=== PATIENT | male | born 1980 | race Caucasian/White ===

== ENCOUNTER → 2017-09-05 13:54 | Outpatient (CLI) | payer OTHER, SELFPAY ==
--- NOTE | 2017-09-05 13:00 | VAS_PTH ---
PATIENT: HARINDER HERNANDEZ LOC: [facility] U#:[id number] AGE/SX: 44/M ROOM: RE09/05/[address]: Dr. Jeb Colbert MD : 1980 BED: DIS: SPEC #: [id number] RECD: 09/05/17 15:25 STATUS: JOSÉ MIGUEL SARABJIT #: [id number] BRYON: 09/05/17 13:[address]: Jeb Colbert DEPT: SURGICAL PATHOLOGY RECD BY: Adalid Santos ENTERED: 09/08/17 12:56 SP TYPE: VAS OTHR DR: Dr. Norberto Rodgers DO Tissues: A - Vas deferens, NOS B - Vas deferens, NOS Procedures: Surgery Specimen Level II HEADER OPERATION: Partial vasectomy PRE-OP DIAGNOSIS: Sterilization TISSUE SUBMITTED: A. Right vas deferens, B. Left vas deferens MICROSCOPIC DIAGNOSIS A. Right vas deferens, partial vasectomy: Completely transected segment of vas deferens, no pathologic diagnosis. B. Left vas deferens, partial vasectomy: Completely transected segment of vas deferens, no pathologic diagnosis. JACINTO:symone 09/09/17 MICROSCOPIC DESCRIPTION Slides are reviewed. GROSS DESCRIPTION A - Received is one container designated right vas deferens. The specimen consists of a cylindrical segment of pink-milian soft tissue. The fragment measures 1.5 cm in length and 0.2 cm in maximum diameter. Serial sections do not reveal gross lesions. The specimen is totally submitted in one cassette. It will be serially sectioned at the time of embedding. B - Received is one container designated left vas deferens. The specimen consists of a cylindrical segment of pink-milian soft tissue. The fragment measures 2 cm in length and 0.2 cm in maximum diameter. Serial sections do not reveal gross lesions. The specimen is totally submitted in one cassette. It will be serially sectioned at the time of embedding. / JACINTO:symone 09/08/17 TC:4 CPT: 61021 x2
== END ==
PROVIDERS: Family Provider Student in an Organized Health Care Education/Training Program; PCP Student in an Organized Health Care Education/Training Program; Visit Provider Surgery
DX: Z30.2 Encounter for sterilization (principal)
CPT/HCPCS: 88302

== ENCOUNTER → 2017-11-05 08:32 | Outpatient (CLI) | payer OTHER, SELFPAY ==
[2017-11-06 11:03] LABS: Semen Analysis Post Vas ABSENT
== END ==
PROVIDERS: Family Provider Student in an Organized Health Care Education/Training Program; PCP Student in an Organized Health Care Education/Training Program; Visit Provider Surgery
DX: Z30.2 Encounter for sterilization (principal)
CPT/HCPCS: 89321

== ENCOUNTER → 2018-05-21 13:22 | Outpatient (CLI) | payer OTHER, SELFPAY ==
[2018-05-22 12:18] LABS: Semen Analysis Post Vas ABSENT
--- OUTSIDE RECORDS SUMMARY | 2018-07-16 17:58 | XMS RPT_ITS ---
:1980 Author Organization [facility] Care Team Providers Name Role Phone DANIELLE, NORBERTO L Referring Unavailable DANIELLE, NORBERTO L Attending Unavailable DANIELLE, NORBERTO L Referring Unavailable DANIELLE, NORBERTO L Attending Unavailable DANIELLE, NORBERTO L Referring Unavailable TESTRAKE, NILO Attending Unavailable DANIELLE, NORBERTO L Referring Unavailable TESTRAKE, NILO Attending Unavailable DANIELLE, NORBERTO L Referring Unavailable Cebul, Jeb Attending Unavailable Danielle, Norberto Referring Unavailable Danielle, Norberto Primary Care Unavailable Cebul, Jeb Attending Unavailable Cebul, Jeb Referring Unavailable Danielle, Norberto Primary Care Unavailable Cebul, Jeb Attending Unavailable Danielle, Norberto Referring Unavailable Danielle, Norberto Primary Care Unavailable Cebul, Jeb Attending Unavailable Danielle, Norberto Referring Unavailable Danielle, Norberto Primary Care Unavailable Cebul, Jeb Attending Unavailable Danielle, Norberto Referring Unavailable Danielle, Norberto Primary Care Unavailable Cebul, Jeb Attending Unavailable Danielle, Norberto Referring Unavailable Danielle, Norberto Primary Care Unavailable Cebul, Jeb Attending Unavailable Danielle, Norberto Referring Unavailable Danielle, Norberto Primary Care Unavailable Cebul, Jeb Attending Unavailable Cebul, Jeb Referring Unavailable Danielle, Norberto Primary Care Unavailable Cebul, Jeb Attending Unavailable Cebul, Jeb Referring Unavailable Danielle, Norberto Primary Care Unavailable PROBLEMS PROBLEMS DATE TYPE CONDITION / CODE ATTENDING STATUS SOURCE 03/25/2018 Active Pain in unspecified NA Active [facility] foot / [facility] [place] M79.673(ICD-10) Repository 10/01/2017 Unknown Z30.2 - Encounter Jeb Colbert Active [facility] for sterilization / [facility] Z30.2(ICD-10) Hospital Repository 06/10/2017 Active Mastodynia / NA Active [facility] N64.4(ICD-10) [facility] [place] Repository 05/13/2017 Active Alcohol abuse, NA Active [facility] uncomplicated / [facility] [place] F10.10(ICD-10) Repository PROCEDURES PROCEDURES No Procedure Records FoundRESULTS RESULTS CNOV Observed: 05/28/2018 Status: COMPLETED Source: [place] 9:25 AM [facility] REPOSITORY Office Visit (PODIWS) HARINDER HERNANDEZ ([id number]) 1980 M Date Time Provider Department 05/28/18 9:25 AM NILO DIA During your visit today, we recorded the following information about you: Joann Billy 05/28/2018 9:24 AM Signed AMB ROOMING INTAKE FLOWSHEET DATA Risk Screening Do you have concerns about personal safety or safety in the home?: No Pain Pain Score: 2/10 Pain Location: Other: See Comment ( Both feet) Description: Sore Duration Amount of Time: 1 Duration Units: Months Frequency: Continuous Intervention: Exercise, Other: See comment (stretches) Patient presents for a 1 month f/u for plantar fascitis, states his feet are hurting more lately but he has been forgetting to do some of the stretches. Joann Billy Nilo Dia DPM 05/28/2018 9:24 AM Signed Follow up podiatric office visit for: Chief Complaint: This 37 year old who presents for follow up:b/l plantar fasciitis Patient states that he is about 50% improved Patient continues with inserts Patient continues with stretching but reports that he is not doing as much as he should be. He had injection last office visit which he believes helped. Overall, patient states the pain is getting better. PAIN EVALUATION 05/28/2018 Pain Score: 2 Pain Location: Other: See Comment Both feet Description: Sore Duration Amount of Time: 1 Duration Units: Months Frequency: Continuous Intervention: Exercise;Other: See comment stretches No results found for: HBA1C PCP: Norberto Danielle, PAST MEDICAL HISTORY Diagnosis Date - Hypercholesteremia - Major depressive disorder 06/02/2015 [facility] - Major depressive disorder, recurrent severe without psychotic features (HCC) 06/02/2015 [facility] - Obesity (BMI 30-39.9) Current Outpatient Prescriptions: hydrocortisone (ANUSOL-HC) 25 mg suppository 1 Suppository by RECTAL route twice daily as needed (rectal bleeding). pantoprazole DR (PROTONIX) 40 mg tablet Take 1 tablet by mouth once daily. therapeutic multivitamin (THERA VITAMIN) tablet Take 1 tablet by mouth once daily. zwhezcka-zyt-mxvred-vit C-hyal [id number] mg tab Take by mouth. No current facility-administered medications for this visit. ALLERGIES No Known Allergies PAST SURGICAL HISTORY Procedure Laterality Date - PAST SURGICAL HISTORY OF 2011 abscess chest - VASECTOMY 2018 Physical Exam: Constitutional: Pt is a well developed 37 year old male who is alert, oriented, cooperative and in no apparent distress. OBJECTIVE: NVSI unchanged from previous visit. Dermatological: Nails 1-5 b/l are normal. Webspaces clean and dry 1-4 b/l. Skin appears well hydrated and supple. good color, texture, turgor. No open lesions present. No callosities present. Musculoskeletal/Orthopaedic: Patient has no pain to palpation of b/l feet -tinel to b/l feet Plantarflexion, dorsiflexion, inversion and eversion is 5/5 ASSESSMENT: (M72.2) Plantar fasciitis, bilateral (primary encounter diagnosis) PLAN: 1. History and physical examination completed today. 2. Plantar fasciitis pain is improved with stretching, icing, inserts and injection. Recommend he increase stretching and continue with inserts. 3. Pain should continue to improve. If he desires another injection, he can contact office. 4. F/u prn. 5. Patient pleased with progress Nilo Dia DPM Referring Provider: SELF [[id number]] Allergies As of Date: 05/28/2018 (No Known Allergies) Date Reviewed: 05/28/2018 Reviewed by: Joann Billy - Fully Assessed Reason for Visit: Recheck [92] Cmt: Plantar Fascitis Primary Visit Diagnosis:Plantar fasciitis, bilateral [M72.2] Prescriptions as of 05/28/2018 Sig: HYDROCORTISONE ACETATE 25 MG * 1 Suppository by RECTAL route* PANTOPRAZOLE 40 MG TABLET,DEL* Take 1 tablet by mouth once d* THERAPEUTIC MULTIVITAMIN TABL* Take 1 tablet by mouth once d* OMUOARIR-EJZ-FSWUSDOGE-C-HYAL* Take by mouth. Problem List As Of Date 05/28/2018 Noted Resolved Well adult [[id number]] INVALID FOR* GERD (gastroesophageal reflux disease) [K21.9] INVALID FOR* More... Obesity, Class III, BMI 40-49.9 (morbid obesity*INVALID FOR* Well adult exam [Z00.00] INVALID FOR* Pain of plantar aspect of heel [M79.673] INVALID FOR* Internal hemorrhoids [K64.8] INVALID FOR* Calcaneal spur [M77.30] INVALID FOR* Disposition: Return if symptoms worsen or fail to improve. Follow-up and Disposition History Recorded Encounter Status:Closed by NILO DIA DPM on 05/28/18 PROGRESS Observed: 05/28/2018 Status: COMPLETED Source: [place] 9:18 AM [facility] [place] REPOSITORY O ID: [id number] Author: Nilo Dia Service: (none) Author Type: Physician Type: Progress Notes Filed: 05/28/2018 9:24 AM Note Text: Follow up podiatric office visit for: Chief Complaint: This 37 year old who presents for follow up:b/l plantar fasciitis Patient states that he is about 50% improved Patient continues with inserts Patient continues with stretching but reports that he is not doing as much as he should be. He had injection last office visit which he believes helped. Overall, patient states the pain is getting better. PAIN EVALUATION 05/28/2018 Pain Score: 2 Pain Location: Other: See Comment Both feet Description: Sore Duration Amount of Time: 1 Duration Units: Months Frequency: Continuous Intervention: Exercise;Other: See comment stretches No results found for: HBA1C PCP: Norberto Danielle, PAST MEDICAL HISTORY Diagnosis Date - Hypercholesteremia - Major depressive disorder 06/02/2015 [facility] - Major depressive disorder, recurrent severe without psychotic features (HCC) 06/02/2015 [facility] - Obesity (BMI 30-39.9) Current Outpatient Prescriptions: hydrocortisone (ANUSOL-HC) 25 mg suppository 1 Suppository by RECTAL route twice daily as needed (rectal bleeding). pantoprazole DR (PROTONIX) 40 mg tablet Take 1 tablet by mouth once daily. therapeutic multivitamin (THERA VITAMIN) tablet Take 1 tablet by mouth once daily. ynhlhlqp-cxt-qidyri-vit C-hyal [phone] mg tab Take by mouth. No current facility-administered medications for this visit. ALLERGIES No Known Allergies PAST SURGICAL HISTORY Procedure Laterality Date - PAST SURGICAL HISTORY OF 2010 abscess chest - VASECTOMY 2018 Physical Exam: Constitutional: Pt is a well developed 37 year old male who is alert, oriented, cooperative and in no apparent distress. OBJECTIVE: NVSI unchanged from previous visit. Dermatological: Nails 1-5 b/l are normal. Webspaces clean and dry 1-4 b/l. Skin appears well hydrated and supple. good color, texture, turgor. No open lesions present. No callosities present. Musculoskeletal/Orthopaedic: Patient has no pain to palpation of b/l feet -tinel to b/l feet Plantarflexion, dorsiflexion, inversion and eversion is 5/5 ASSESSMENT: (M72.2) Plantar fasciitis, bilateral (primary encounter diagnosis) PLAN: 1. History and physical examination completed today. 2. Plantar fasciitis pain is improved with stretching, icing, inserts and injection. Recommend he increase stretching and continue with inserts. 3. Pain should continue to improve. If he desires another injection, he can contact office. 4. F/u prn. 5. Patient pleased with progress Nilo Dia DPM PROGRESS Observed: 05/28/2018 Status: COMPLETED Source: [place] 9:09 AM [facility] REPOSITORY HNO ID: [id number] Author: Joann Billy Service: (none) Author Type: (none) Type: Progress Notes Filed: 05/28/2018 9:24 AM Note Text: AMB ROOMING INTAKE FLOWSHEET DATA Risk Screening Do you have concerns about personal safety or safety in the home?: No Pain Pain Score: 2/10 Pain Location: Other: See Comment ( Both feet) Description: Sore Duration Amount of Time: 1 Duration Units: Months Frequency: Continuous Intervention: Exercise, Other: See comment (stretches) Patient presents for a 1 month f/u for plantar fascitis, states his feet are hurting more lately but he has been forgetting to do some of the stretches. Joann Billy SEMEN ANALYSIS POST Collected: 05/21/2018 Status: C Source: [place] VAS 1:40 PM [facility] [place] TYPE CODE TESTS RESULT OUT OF RANGE REFERENCE UNITS LAB L200.1000 Normal SEMEN ABSENT POST VAS Result Comment: CYTOSPIN PREPARATION USED FOR CONCENTRATION OF SPECIMEN PRIOR TO STAINING AND EXAMINATION Sperm is absent. Cb Vyas M.D. 05/22/18 AMENDED REPORT 05/22/18 1218 SEMEN POST VAS previously reported as: ABSENT CYTOSPIN PREPARATION USED FOR CONCENTRATION OF SPECIMEN PRIOR TO STAINING AND EXAMINATION Performed By: #### L200.1000 #### [facility] [address] [place], [address] PROGRESS Observed: 04/13/2018 Status: COMPLETED Source: [place] 10:55 AM [facility] REPOSITORY HNO ID: [id number] Author: Galina Coronado Ma Service: (none) Author Type: (none) Type: Progress Notes Filed: 04/13/2018 10:55 AM Note Text: Patient provided with Powerstep Original , size 11, and instructed/educated in its application, wear, and care. All questions were answered, and patient was able to demonstrate competence with the necessary skills to utilize the above equipment. Galina Coronado Ma PROGRESS Observed: 04/13/2018 Status: COMPLETED Source: [place] 9:24 AM [facility] REPOSITORY HNO ID: [id number] Author: Nilo Dia Service: (none) Author Type: Physician Type: Progress Notes Filed: 04/13/2018 10:00 AM Note Text: Consultation requested by Dr. Danielle for an opinion regarding b/l heel pain. My final recommendations will be communicated back to the requesting physician by way of shared Medical record or letter to requesting physician via US mail. Initial Podiatric Office Visit: Chief Complaint: This 37 year old male who presents with chief complaint:b/l heel pain HPI Patient presents to clinic for evaluation of b/l heel pain He complains of pain to plantar aspect of b/l heels for 10- 15 years He states the pain is the worst when he first wakes up in the morning or after prolonged standing. Patient states the pain varies which is why he has not gone to see anyone for this pain. Patient has done some rom exercises/stretching for the pain. He has no done any icing or nsaids. PAIN EVALUATION 04/13/2018 Pain Score: 2 Pain Location: Foot-Right Description: Dull;Aching;Sharp Duration Amount of Time: 10 Duration Units: Years Frequency: Intermittent Intervention: Medication No results found for: HBA1C PCP: Norberto Danielle DO PAST MEDICAL HISTORY Diagnosis Date - Hypercholesteremia - Major depressive disorder 06/02/2015 [facility] - Major depressive disorder, recurrent severe without psychotic features (HCC) 06/02/2015 See scanned documents from [facility] - Obesity (BMI 30-39.9) Current Outpatient Prescriptions: hydrocortisone (ANUSOL-HC) 25 mg suppository 1 Suppository by RECTAL route twice daily as needed (rectal bleeding). pantoprazole DR (PROTONIX) 40 mg tablet Take 1 tablet by mouth once daily. therapeutic multivitamin (THERA VITAMIN) tablet Take 1 tablet by mouth once daily. drdpvwmm-hqu-gzhuec-vit C-hyal [id number] mg tab Take by mouth. No current facility-administered medications for this visit. ALLERGIES No Known Allergies PAST SURGICAL HISTORY Procedure Laterality Date - PAST SURGICAL HISTORY OF 2010 abscess chest - VASECTOMY 2018 FAMILY HISTORY Problem Relation Age of Onset - Breast Cancer Mother - Heart Mother from chemo - Diabetes Father - Cancer Maternal Grandmother Lung - Cancer Maternal Grandfather pancreatic - other (NPH) Sister - Cancer Maternal Aunt Breast - Cancer Maternal Uncle Colorectal Social History Marital status: Spouse name: Years of education: Number of children: 1 Social History Main Topics Smoking status: Former Smoker Packs/day: 1.00 Years: 10.00 Smokeless tobacco: Never Used Comment: quit 2008 Alcohol use: Yes Comment: 1-2 beers/ d Drug use: No Sexual activity: Yes Partners with: Female Social History Narrative - works in [employer] at [employer], son max born 2011 REVIEW OF SYSTEMS GENERAL: Negative for Malaise, significant weight loss, fever RESPIRATORY: Negative for cough, wheezing and shortness of breath CARDIOVASCULAR: Negative for chest pain, leg swelling and palpitations GI: Negative for abdominal discomfort, blood in stools or black stools and change in bowel habits : Negative for dysuria, frequency and incontinence MUSCULOSKELETAL: Positive for b/l heel pain SKIN: Negative for lesions, rash, and itching. HEMATOLOGY/LYMPHOLOGY Negative for prolonged bleeding, bruising easily, and swollen nodes. ENDOCRINE: Negative for cold or heat intolerance, polyuria, polydipsia and goiter. NEURO: negative Physical Exam: Constitutional: Pt is a well developed 37 year old male who is alert, oriented and cooperative Eyes: Following during examination. No redness or drainage. Respiratory: RR normal and nonlabored. Even breathing. No evidence of distress or shortness of breath. Psychology: Patient is engaged during conversation. Normal affect and mood. Does not appear depressed or anxious during encounter. Vascular: Dorsalis pedis and posterior tibial pulses palpable as b/l Capillary Fill time < 5 seconds to digits 1-5 b/l Skin temperature warm to warm proximal to distal b/l Hair growth present to digits Neurological: intact light touch/epicritic sensation b/l intact protective sensation no significant neurological deficits Dermatological: Nails 1-5 b/l appear normal. Webspaces clean and dry 1-4 b/l. Skin appears well hydrated and supple. good color, texture, turgor. No open lesions present. No callosities present. Musculoskeletal/Orthopaedic: Patient has pain to palpation of b/l medial calcaneal tubercle Foot type is neutral structurally AJ ROM is full with knee extended and flexed 1st MPJ is full when loaded and no pain or crepitus are noted with ROM. MTJ, STJ are full and free of pain and crepitus. +5/5 muscle strength dorsiflexion, plantarflexion, inversion, eversion b/l Radiographs: 3 views b/l foot ordered April 13, 2018: I have personally reviewed and interpreted these XR myself: There is plantar heel spur b/l ASSESSMENT: (M72.2) Plantar fasciitis, bilateral (primary encounter diagnosis) PLAN: 1. Initial Office Visit - A thorough review of the patient's PMH and Podiatric physical exam was completed. 2. Patient advised to perform stretching excercises, icing, and to make appropriate shoe gear changes to include wearing athletic- type shoes with supportive insoles. No barefoot walking. Patient also given written instructions on how to correctly perform the stretching of the achilles tendon/calf stretches, and the heel spur/plantar fasciitis regimen. 3. Patient advised to seek wide, deep toe box, accomodative, comfortable, lace-up, athletic/walking type footwear that includes motion control characteristics for support and cushion that need to be worn at all times when weight-bearing. Shoes should be tested for torsional stability as well as proper bending at the toebox rather than at the midfoot. Good quality shoes such as, but not limited to, New Balance or Asics are examples of more proper foot gear. 4. Patient recommended to get powerstep insoles for proper support of the arch in order to alleviate the tension and stress on the plantar fascia associated with normal daily walking. Patient advised that these modalities used in conjunction with stretching and icing are able to alleviate most symptoms from this condition. 5. Discussed injection today. Patient elected to receive Patient elected to proceed with an injection to the b/l heel today. The risks, benefits, potential complications, personnel present, and alternatives to this were discsussed. Pt elected to proceed. all questions were answered. no guarantees were given. A timeout was performed. patient properly identified. procedure site marked. Under aseptic technique an injection was performed to the heel using a mixture of ? cc of 0.5 % Marcaine plain, ? of kenalog and ? cc of dexamethazone 6. F/u in 1 month Nilo Dia DPM PROGRESS Observed: 04/13/2018 Status: COMPLETED Source: [place] 9:15 AM [facility] REPOSITORY HNO ID: [id number] Author: Hawa Fabian MA Service: (none) Author Type: (none) Type: Progress Notes Filed: 04/13/2018 10:00 AM Note Text: AMB ROOMING INTAKE FLOWSHEET DATA Risk Screening Do you have concerns about personal safety or safety in the home?: No Pain Pain Score: 2/10 Pain Location: Foot-Right Description: Dull, Aching, Sharp Duration Amount of Time: 10 Duration Units: Years Frequency: Intermittent Intervention: Medication Patient is here for b/l pain heel pain. Patient states in the morning the bottom of his feet hurts at pain 8/10. Patient takes nothing for pain. PCP advise pt to see a Railroad Operator. EMPERATRIZ 03/25 HUMBERTO Observed: 04/13/2018 Status: COMPLETED Source: [place] 9:10 AM [facility] REPOSITORY Office Visit (PODIWS) HARINDER HERNANDEZ ([id number]) 1980 M Date Time Provider Department 04/13/18 9:10 AM NILO DIA PODLINH During your visit today, we recorded the following information about you: Hawa Fabian MA 04/13/2018 10:00 AM Signed AMB ROOMING INTAKE FLOWSHEET DATA Risk Screening Do you have concerns about personal safety or safety in the home?: No Pain Pain Score: 2/10 Pain Location: Foot-Right Description: Dull, Aching, Sharp Duration Amount of Time: 10 Duration Units: Years Frequency: Intermittent Intervention: Medication Patient is here for b/l pain heel pain. Patient states in the morning the bottom of his feet hurts at pain 8/10. Patient takes nothing for pain. PCP advise pt to see a Railroad Operator. XR 03/25 Nilo Dia DPM 04/13/2018 10:00 AM Signed Consultation requested by Dr. Danielle for an opinion regarding b/l heel pain. My final recommendations will be communicated back to the requesting physician by way of shared Medical record or letter to requesting physician via [place] mail. Initial Podiatric Office Visit: Chief Complaint: This 37 year old male who presents with chief complaint:b/l heel pain HPI Patient presents to clinic for evaluation of b/l heel pain He complains of pain to plantar aspect of b/l heels for 10- 15 years He states the pain is the worst when he first wakes up in the morning or after prolonged standing. Patient states the pain varies which is why he has not gone to see anyone for this pain. Patient has done some rom exercises/stretching for the pain. He has no done any icing or nsaids. PAIN EVALUATION 04/13/2018 Pain Score: 2 Pain Location: Foot-Right Description: Dull;Aching;Sharp Duration Amount of Time: 10 Duration Units: Years Frequency: Intermittent Intervention: Medication No results found for: HBA1C PCP: Norberto Danielle, PAST MEDICAL HISTORY Diagnosis Date - Hypercholesteremia - Major depressive disorder 06/02/2015 [facility] - Major depressive disorder, recurrent severe without psychotic features (HCC) 06/02/2015 [facility] - Obesity (BMI 30-39.9) Current Outpatient Prescriptions: hydrocortisone (ANUSOL-HC) 25 mg suppository 1 Suppository by RECTAL route twice daily as needed (rectal bleeding). pantoprazole DR (PROTONIX) 40 mg tablet Take 1 tablet by mouth once daily. therapeutic multivitamin (THERA VITAMIN) tablet Take 1 tablet by mouth once daily. jyzkysey-szk-ppwgxf-vit C-hyal [id number] mg tab Take by mouth. No current facility-administered medications for this visit. ALLERGIES No Known Allergies PAST SURGICAL HISTORY Procedure Laterality Date - PAST SURGICAL HISTORY OF 2011 abscess chest - VASECTOMY 2018 FAMILY HISTORY Problem Relation Age of Onset - Breast Cancer Mother - Heart Mother from chemo - Diabetes Father - Cancer Maternal Grandmother Lung - Cancer Maternal Grandfather pancreatic - other (NPH) Sister - Cancer Maternal Aunt Breast - Cancer Maternal Uncle Colorectal Social History Marital status: Spouse name: Years of education: Number of children: 1 Social History Main Topics Smoking status: Former Smoker Packs/day: 1.00 Years: 10.00 Smokeless tobacco: Never Used Comment: quit 2008 Alcohol use: Yes Comment: 1-2 beers/ d Drug use: No Sexual activity: Yes Partners with: Female Social History Narrative - works in [employer] at [employer], son chauncey born 2011 REVIEW OF SYSTEMS GENERAL: Negative for Malaise, significant weight loss, fever RESPIRATORY: Negative for cough, wheezing and shortness of breath CARDIOVASCULAR: Negative for chest pain, leg swelling and palpitations GI: Negative for abdominal discomfort, blood in stools or black stools and change in bowel habits : Negative for dysuria, frequency and incontinence MUSCULOSKELETAL: Positive for b/l heel pain SKIN: Negative for lesions, rash, and itching. HEMATOLOGY/LYMPHOLOGY Negative for prolonged bleeding, bruising easily, and swollen nodes. ENDOCRINE: Negative for cold or heat intolerance, polyuria, polydipsia and goiter. NEURO: negative Physical Exam: Constitutional: Pt is a well developed 37 year old male who is alert, oriented and cooperative Eyes: Following during examination. No redness or drainage. Respiratory: RR normal and nonlabored. Even breathing. No evidence of distress or shortness of breath. Psychology: Patient is engaged during conversation. Normal affect and mood. Does not appear depressed or anxious during encounter. Vascular: Dorsalis pedis and posterior tibial pulses palpable as b/l Capillary Fill time < 5 seconds to digits 1-5 b/l Skin temperature warm to warm proximal to distal b/l Hair growth present to digits Neurological: intact light touch/epicritic sensation b/l intact protective sensation no significant neurological deficits Dermatological: Nails 1-5 b/l appear normal. Webspaces clean and dry 1-4 b/l. Skin appears well hydrated and supple. good color, texture, turgor. No open lesions present. No callosities present. Musculoskeletal/Orthopaedic: Patient has pain to palpation of b/l medial calcaneal tubercle Foot type is neutral structurally AJ ROM is full with knee extended and flexed 1st MPJ is full when loaded and no pain or crepitus are noted with ROM. MTJ, STJ are full and free of pain and crepitus. +5/5 muscle strength dorsiflexion, plantarflexion, inversion, eversion b/l Radiographs: 3 views b/l foot ordered April 13, 2018: I have personally reviewed and interpreted these XR myself: There is plantar heel spur b/l ASSESSMENT: (M72.2) Plantar fasciitis, bilateral (primary encounter diagnosis) PLAN: 1. Initial Office Visit - A thorough review of the patient's PMH and Podiatric physical exam was completed. 2. Patient advised to perform stretching excercises, icing, and to make appropriate shoe gear changes to include wearing athletic- type shoes with supportive insoles. No barefoot walking. Patient also given written instructions on how to correctly perform the stretching of the achilles tendon/calf stretches, and the heel spur/plantar fasciitis regimen. 3. Patient advised to seek wide, deep toe box, accomodative, comfortable, lace-up, athletic/walking type footwear that includes motion control characteristics for support and cushion that need to be worn at all times when weight-bearing. Shoes should be tested for torsional stability as well as proper bending at the toebox rather than at the midfoot. Good quality shoes such as, but not limited to, New Balance or Asics are examples of more proper foot gear. 4. Patient recommended to get powerstep insoles for proper support of the arch in order to alleviate the tension and stress on the plantar fascia associated with normal daily walking. Patient advised that these modalities used in conjunction with stretching and icing are able to alleviate most symptoms from this condition. 5. Discussed injection today. Patient elected to receive Patient elected to proceed with an injection to the b/l heel today. The risks, benefits, potential complications, personnel present, and alternatives to this were discsussed. Pt elected to proceed. all questions were answered. no guarantees were given. A timeout was performed. patient properly identified. procedure site marked. Under aseptic technique an injection was performed to the heel using a mixture of ? cc of 0.5 % Marcaine plain, ? of kenalog and ? cc of dexamethazone 6. F/u in 1 month PETER Strauss DPM 04/13/2018 9:39 AM Signed What is Plantar Fasciitis? Plantar fasciitis is the most common cause of heel pain. The pain is caused by inflammation of the plantar fascia. If you strain your plantar fascia, it becomes weak, swollen and irritated (inflamed). The resulting pain may be isolated in the heel or may appear at different points on the bottom of the foot, from time to time; it may occur in one foot or both. Some think that plantar fasciitis pain is caused by irritation of nerves from tissue swelling or inflammation, but it is debatable. Plantar fasciitis is common in middle-aged people; it also occurs in younger people who are on their feet a lot, such as athletes or soldiers. The plantar fascia is a strong band of connective tissue that extends from the base of the toes, along the bottom of the foot, to the bottom of the heel (calcaneous bone); it acts like a bowstring to maintain the arch of the foot. What are heel spurs? The inflammatory reaction of the heel bone may produce spike- like projections of new bone, called heel spurs. The spurs sometimes show on X-rays. They neither cause the initial pain nor do they cause the initial problem. However, later, having to walk on spurs may cause sharp pain. What causes plantar fasciitis? Plantar fasciitis is caused by straining the ligament that supports your arch. Repeated strain can cause tiny tears in the ligament. These lead to pain and swelling. During walking, the plantar fascia experiences tension up to twice the body weight with each step. While this is normal, those who spend much time on their feet, such as nurses, formal waiter/waitress/waiters, and mail carriers, often experience plantar fasciitis. Athletes involved in tennis or other racquet sports, race walking, jogging or running also show a higher incidence of plantar fasciitis than do those participating in other activities. Thus, it's clear that plantar fasciitis is predominantly an overuse injury. In fact, any activity that results in prolonged tension and stress on the plantar fascia may cause plantar fasciitis. It is possible that changes in footwear may play a role in causing plantar fasciitis, no matter what activity is occurring. Those who are overweight are prone to plantar fasciitis. This is true even for sedentary people who get little physical activity. Abnormalities of the foot and ankle joints may predispose some individuals to development of plantar fasciitis (specifically, over pronation of the subtalar joint). Contributing Factors * Flat feet * Toe running, hill running * Sudden weight increase * High-arched, rigid feet * Soft terrain, e.g. running on sand * Obesity * Pronated feet (rolled inward) * Sudden increase in activity * Family tendency * Poor shoe support * Worn out or poorly fitted shoes * Increasing age * Walking, standing or running for long periods of time, especially on hard surfaces. How is the Injury Treated? Rest Your Feet: Limit, or if possible, stop activities that are causing your heel pain. Try to avoid running or walking on hard surfaces, such as concrete. Use pain as your guide. If your foot is too painful, rest it. Ice: Ice the sore area for 30 to 60 minutes, several times a day, to reduce inflammation and relieve pain. Apply a plastic bag of crushed ice (or a bag of frozen peas) over a towel. Ice the sore area for 15 minutes after activity/exercise. Application of heat is not generally recommended, as heat expands the bone and connective tissue, perhaps exerting greater pressure on nerves and thereby increasing pain. If heat is used, follow it with ice. Medication: If your condition developed recently, anti-inflammatory/analgesic medication, combined with heel pads (see below) may be all that is necessary to relieve pain and to reduce inflammation. If no pain relief has occurred after 2-3 weeks, however, your doctor may inject either cortisone or local anesthetic directly into the tender area. Exercises: Do simple exercises, such as calf stretches and towel stretches (see below) several times a day, especially when you first get up in the morning. These can help your ligament become more flexible and strengthen the muscles that support your arch. Shoes: Poorly fitting shoes can cause plantar fasciitis. The best type of shoe to wear is a good walking or running shoe with good shock absorption and excellent arch support. You should choose the one that fits the best. [place] with your athletic shoes to find a pair that is comfortable and causes fewer symptoms. Put your shoes on as soon as you get out of bed; going barefoot or wearing slippers may make your pain worse. Good brands include (but are not limited to): New Balance, Asics, Saucony, SAS and Merrel?s. Taping: Your doctor may tape your foot to maintain the arch. This takes some of the tension off the plantar fascia. Weight Loss: If your weight is putting extra stress on your feet, your doctor may encourage you to try a weight-loss program. Orthotics: An orthotic insole is a molded piece of rubber, plastic, or other material that you insert into your shoe. It corrects the alignment of your foot and cushions your foot from excessive pounding. These may be prescription or non-prescription. Prescription orthotics are custom-fitted and may fit better and control pain better, but are very expensive. Night Splints: A night splint holds the foot with the toes pointed up and the ankle at a 90-degree angle. This position applies a constant, gentle stretch to the plantar fascia. Corticosteroid Shots: Steroids may be injected into the tender area to reduce inflammation. REHAB Exercises to stretch the plantar fascia, the calf muscles, and the Achilles tendon. Tightness of the muscles of the calves may contribute to plantar fasciitis, so stretching the calf muscles is important to rehabilitation, as is stretching of the plantar fascia itself. Plantar fascial stretches Assisted Dorsiflexion/Plantar Fascia Stretch: Sit on the floor or ground, barefoot, with both legs outstretched. Use a towel or elastic band and wrap it around the ball (and not the toes) of the affected foot. Use the towel or elastic band to provide resistance to upward movement of the forefoot. Pull foot upward (toward your body) with the help of the elastic band or towel, and then return to the starting position. Ten repetitions are recommended. Perform the sequence at least three times a day. Alternate Plantar Fascia Stretch: Sit upright in a chair, barefoot. Place the ankle of the affected foot on your opposite knee. Using the same hand as the affected foot, reach across and grab the toes. Flex the ankle toward and pull the toes toward the montes. To test the stretch, place the thumb of your hand on the bottom of the foot. You should be able to feel the cord- like plantar fascia, running the length of the foot. Hold the stretch for a count of 10, then relax. Repeat 10 times. Do the sequence at least three times a day. Achilles/Calf Stretches Strengthening the muscles of the calves may contribute to successful rehabilitation of plantar fasciitis, as well as prevent reoccurrence. The exercises below will help strengthen the calf muscles. Calf and Achilles Tendon Stretch (Gastrocnemius Stretch): Face a wall, standing an arm's length away. Place one foot back. Place both hands on the wall. Bend the elbows and knee of your forward leg, keeping the heel of the backward foot on the floor and keeping your body straight (aligned), until your forehead nearly touches the wall, or until significant stretch is felt in the muscles of the calf of the backward leg. Hold this position for 10 to 15 seconds. Extend elbows (straighten your arms and stand upright again) and maintain this position for 10 seconds. Repeat this cycle 15 to 20 times. Switch legs and repeat the exercise. STEROID INJECTION You have been injected with a corticosteroid and local anesthesia today. This should provide relief of symptoms for the next 8 hours or so. After this time frame you will likely experience an increase in pain symptoms again until the effects of the steroid start to work, which should occur within 24-48 hours. Approximately 2% of individuals may experience a post injection flare or severe worsening of symptoms following injection. If this occurs ice the area and take Tylenol or Aleve for pain. In some very rare instances skin depigmentation and joint infection may occur. Joint infection is a concern if you experience any of the following: ? pain for more than 48 hours after the injection ? pain develops more than 2 days after the injection ? the area becomes red, hot or swollen ? you develop a fever following the injection Corticosteroid injections can also rarely interfere with the healing process and weaken tendons, sometimes causing tendons to rupture. Repeated injections of steroids can also damage joint cartilage. For these reasons, there are limits to how many times and how frequently corticosteroid injections can be used in the same area. If anything seems unusual or out of the ordinary please contact our office as soon as possible for further instruction. Galina Coronado Ma 04/13/2018 10:55 AM Signed Patient provided with Powerstep Original , size 11, and instructed/educated in its application, wear, and care. All questions were answered, and patient was able to demonstrate competence with the necessary skills to utilize the above equipment. Galina Coronado Ma Referring Provider: NORBERTO DANIELLE [[id number]] Allergies As of Date: 04/13/2018 (No Known Allergies) Date Reviewed: 04/13/2018 Reviewed by: Hawa Fabian MA - Fully Assessed Reason for Visit: New Patient [[id number]] Primary Visit Diagnosis:Plantar fasciitis, bilateral [M72.2] Order(s):[] bupivacaine (PF) 0.5 % (5 mg/mL) 2.5 mg injectionDisp: Rfl: [] dexamethasone sodium phosphate 2 mg injection (DECADRON)Disp: Rfl: [] triamcinolone acetonide 5 mg injection (KENALOG 10)Disp: Rfl: Prescriptions as of 04/13/2018 Sig: HYDROCORTISONE ACETATE 25 MG * 1 Suppository by RECTAL route* PANTOPRAZOLE 40 MG TABLET,DEL* Take 1 tablet by mouth once d* THERAPEUTIC MULTIVITAMIN TABL* Take 1 tablet by mouth once d* [id number]-[id number]-C-HYAL* Take by mouth. Problem List As Of Date 04/13/2018 Noted Resolved Well adult [MKM6942] INVALID FOR* GERD (gastroesophageal reflux disease) [K21.9] INVALID FOR* More... Obesity, Class III, BMI 40-49.9 (morbid obesity*INVALID FOR* Well adult exam [Z00.00] INVALID FOR* Pain of plantar aspect of heel [M79.673] INVALID FOR* Internal hemorrhoids [K64.8] INVALID FOR* Calcaneal spur [M77.30] INVALID FOR* Other instructions from your clinician: What is Plantar Fasciitis? Plantar fasciitis is the most common cause of heel pain. The pain is caused by inflammation of the plantar fascia. If you strain your plantar fascia, it becomes weak, swollen and irritated (inflamed). The resulting pain may be isolated in the heel or may appear at different points on the bottom of the foot, from time to time; it may occur in one foot or both. Some think that plantar fasciitis pain is caused by irritation of nerves from tissue swelling or inflammation, but it is debatable. Plantar fasciitis is common in middle-aged people; it also occurs in younger people who are on their feet a lot, such as athletes or soldiers. The plantar fascia is a strong band of connective tissue that extends from the base of the toes, along the bottom of the foot, to the bottom of the heel (calcaneous bone); it acts like a bowstring to maintain the arch of the foot. What are heel spurs? The inflammatory reaction of the heel bone may produce spike-like projections of new bone, called heel spurs. The spurs sometimes show on X-rays. They neither cause the initial pain nor do they cause the initial problem. However, later, having to walk on spurs may cause sharp pain. What causes plantar fasciitis? Plantar fasciitis is caused by straining the ligament that supports your arch. Repeated strain can cause tiny tears in the ligament. These lead to pain and swelling. During walking, the plantar fascia experiences tension up to twice the body weight with each step. While this is normal, those who spend much time on their feet, such as nurses, formal waiter/waitress/waiters, and mail carriers, often experience plantar fasciitis. Athletes involved in tennis or other racquet sports, race walking, jogging or running also show a higher incidence of plantar fasciitis than do those participating in other activities. Thus, it's clear that plantar fasciitis is predominantly an overuse injury. In fact, any activity that results in prolonged tension and stress on the plantar fascia may cause plantar fasciitis. It is possible that changes in footwear may play a role in causing plantar fasciitis, no matter what activity is occurring. Those who are overweight are prone to plantar fasciitis. This is true even for sedentary people who get little physical activity. Abnormalities of the foot and ankle joints may predispose some individuals to development of plantar fasciitis (specifically, over pronation of the subtalar joint). Contributing Factors * Flat feet * Toe running, hill running * Sudden weight increase * High-arched, rigid feet * Soft terrain, e.g. running on sand * Obesity * Pronated feet (rolled inward) * Sudden increase in activity * Family tendency * Poor shoe support * Worn out or poorly fitted shoes * Increasing age * Walking, standing or running for long periods of time, especially on hard surfaces. How is the Injury Treated? Rest Your Feet: Limit, or if possible, stop activities that are causing your heel pain. Try to avoid running or walking on hard surfaces, such as concrete. Use pain as your guide. If your foot is too painful, rest it. Ice: Ice the sore area for 30 to 60 minutes, several times a day, to reduce inflammation and relieve pain. Apply a plastic bag of crushed ice (or a bag of frozen peas) over a towel. Ice the sore area for 15 minutes after activity/exercise. Application of heat is not generally recommended, as heat expands the bone and connective tissue, perhaps exerting greater pressure on nerves and thereby increasing pain. If heat is used, follow it with ice. Medication: If your condition developed recently, anti-inflammatory/analgesic medication, combined with heel pads (see below) may be all that is necessary to relieve pain and to reduce inflammation. If no pain relief has occurred after 2-3 weeks, however, your doctor may inject either cortisone or local anesthetic directly into the tender area. Exercises: Do simple exercises, such as calf stretches and towel stretches (see below) several times a day, especially when you first get up in the morning. These can help your ligament become more flexible and strengthen the muscles that support your arch. Shoes: Poorly fitting shoes can cause plantar fasciitis. The best type of shoe to wear is a good walking or running shoe with good shock absorption and excellent arch support. You should choose the one that fits the best. [place] with your athletic shoes to find a pair that is comfortable and causes fewer symptoms. Put your shoes on as soon as you get out of bed; going barefoot or wearing slippers may make your pain worse. Good brands include (but are not limited to): New Balance, Asics, Saucony, SAS and Merrel?s. Taping: Your doctor may tape your foot to maintain the arch. This takes some of the tension off the plantar fascia. Weight Loss: If your weight is putting extra stress on your feet, your doctor may encourage you to try a weight-loss program. Orthotics: An orthotic insole is a molded piece of rubber, plastic, or other material that you insert into your shoe. It corrects the alignment of your foot and cushions your foot from excessive pounding. These may be prescription or non-prescription. Prescription orthotics are custom-fitted and may fit better and control pain better, but are very expensive. Night Splints: A night splint holds the foot with the toes pointed up and the ankle at a 90-degree angle. This position applies a constant, gentle stretch to the plantar fascia. Corticosteroid Shots: Steroids may be injected into the tender area to reduce inflammation. REHAB Exercises to stretch the plantar fascia, the calf muscles, and the Achilles tendon. Tightness of the muscles of the calves may contribute to plantar fasciitis, so stretching the calf muscles is important to rehabilitation, as is stretching of the plantar fascia itself. Plantar fascial stretches Assisted Dorsiflexion/Plantar Fascia Stretch: Sit on the floor or ground, barefoot, with both legs outstretched. Use a towel or elastic band and wrap it around the ball (and not the toes) of the affected foot. Use the towel or elastic band to provide resistance to upward movement of the forefoot. Pull foot upward (toward your body) with the help of the elastic band or towel, and then return to the starting position. Ten repetitions are recommended. Perform the sequence at least three times a day. Alternate Plantar Fascia Stretch: Sit upright in a chair, barefoot. Place the ankle of the affected foot on your opposite knee. Using the same hand as the affected foot, reach across and grab the toes. Flex the ankle toward and pull the toes toward the montes. To test the stretch, place the thumb of your hand on the bottom of the foot. You should be able to feel the cord-like plantar fascia, running the length of the foot. Hold the stretch for a count of 10, then relax. Repeat 10 times. Do the sequence at least three times a day. Achilles/Calf Stretches Strengthening the muscles of the calves may contribute to successful rehabilitation of plantar fasciitis, as well as prevent reoccurrence. The exercises below will help strengthen the calf muscles. Calf and Achilles Tendon Stretch (Gastrocnemius Stretch): Face a wall, standing an arm's length away. Place one foot back. Place both hands on the wall. Bend the elbows and knee of your forward leg, keeping the heel of the backward foot on the floor and keeping your body straight (aligned), until your forehead nearly touches the wall, or until significant stretch is felt in the muscles of the calf of the backward leg. Hold this position for 10 to 15 seconds. Extend elbows (straighten your arms and stand upright again) and maintain this position for 10 seconds. Repeat this cycle 15 to 20 times. Switch legs and repeat the exercise. STEROID INJECTION You have been injected with a corticosteroid and local anesthesia today. This should provide relief of symptoms for the next 8 hours or so. After this time frame you will likely experience an increase in pain symptoms again until the effects of the steroid start to work, which should occur within 24-48 hours. Approximately 2% of individuals may experience a post injection flare or severe worsening of symptoms following injection. If this occurs ice the area and take Tylenol or Aleve for pain. In some very rare instances skin depigmentation and joint infection may occur. Joint infection is a concern if you experience any of the following: ? pain for more than 48 hours after the injection ? pain develops more than 2 days after the injection ? the area becomes red, hot or swollen ? you develop a fever following the injection Corticosteroid injections can also rarely interfere with the healing process and weaken tendons, sometimes causing tendons to rupture. Repeated injections of steroids can also damage joint cartilage. For these reasons, there are limits to how many times and how frequently corticosteroid injections can be used in the same area. If anything seems unusual or out of the ordinary please contact our office as soon as possible for further instruction. Prescriptions ordered this encounter Disp Refills Start End BUPIVACAINE (PF) 0.5 % (5 MG/ML) INJ* 04/13/2018 04/13/2018 Route: IAtc DEXAMETHASONE 4 MG/ML INJECTION SOLU* 04/13/2018 04/13/2018 Route: IAtc TRIAMCINOLONE ACETONIDE 10 MG/ML FELIX* 04/13/2018 04/13/2018 Route: IAtc Encounter Status:Closed by NILO DIA DPM on 04/13/18 PROGRESS Observed: 03/25/2018 Status: COMPLETED Source: [place] 4:58 PM [facility] [place] [facility] ID: [id number] Author: Norberto Danielle Service: (none) Author Type: Physician Type: Progress Notes Filed: 03/25/2018 5:05 PM Note Text: CC: Harinder Hernandez is a 37 year old male who presents to the office for several concerns HPI: Blood in stool, off and on to small degree for several years, but only when wiping and only occasional. 2 weeks ago he had 2 days of bright red bleeding with a bowel movement, no associated rectal pain, no associated fevers or chills or rectal spasmic discomfort. No abdominal pain or cramping associated with it. No obvious hemorrhoids B/l heel pain, off and on for years, 12+ years. Xray last was >6 years ago and told has large heel spurs. Now symptoms are becoming more significant and persistent and lasting for hours, occurring on a daily basis, worse in the morning when waking up from bed, sometimes better as day goes on but also worse after getting up to walk after prolonged sitting. Use of ice and stretching foot and NSAIDs intermittently. PAST MEDICAL HISTORY Diagnosis Date - Hypercholesteremia - Major depressive disorder 06/02/2015 [facility] - Major depressive disorder, recurrent severe without psychotic features (HCC) 06/02/2015 See [facility] - Obesity (BMI 30-39.9) PAST SURGICAL HISTORY Procedure Laterality Date - PAST SURGICAL HISTORY OF 2010 abscess chest - VASECTOMY 2018 Current Outpatient Prescriptions: pantoprazole DR (PROTONIX) 40 mg tablet Take 1 tablet by mouth once daily. therapeutic multivitamin (THERA VITAMIN) tablet Take 1 tablet by mouth once daily. pziqsshw-uuk-dfrjuv-vit C-hyal [id number] mg tab Take by mouth. No current facility-administered medications for this visit. ALLERGIES No Known Allergies Social History Marital status: Spouse name: Years of education: Number of children: 1 Social History Main Topics Smoking status: Former Smoker Packs/day: 1.00 Years: 10.00 Smokeless tobacco: Never Used Comment: quit 2008 Alcohol use: Yes Comment: 1-2 beers/ d Drug use: No Sexual activity: Yes Partners with: Female Social History Narrative - works in [employer] at [employer], son chauncey born 2011 ROS: See HPI PE: BP 130/84 Pulse 80 Temp (Src) 98.1 (Left Tympanic) Resp 16 Wt 290 lb (131.5kg) Gen: AANDOX3, NAD, non-toxic appearing HEENT: PERRLA, EOMs intact b/l, nares without drainage, pharynx without erythema, exudate, lesions, or drainage. Uvula midline. Neck: No LAD, no thyromegaly, no meningismus. CV: RRR, no murmur Lungs: CTA b/l, no wheezing Skin: No rashes, lesions, or wounds on exposed skin. + heel plantar surface TTP b/l feet, normal appearing arch and plantar tendon Rectal exam with external tag at 12 o oclock position, no fissures anal region present. + internal hemorrhoid at 12 and 6 oclock positions ASSESSMENT/PLAN: 1. Internal hemorrhoids - ICD9: 455.0, ICD10: K64.8 (primary diagnosis) - rx prn as below, if symptoms worsen then would recommend colonoscopy as d/w him today - HYDROCORTISONE ACETATE 25 MG RECTAL SUPPOSITORY 2. Pain of plantar aspect of heel - ICD9: 729.5, ICD10: M79.673 - xray and referral, given information on stretches and ice massage and heel rolling to do, long standing worsening symptoms - XR FOOT GENERAL 3V AP/LAT/OBL BILAT - CONSULT TO PODIATRY 3. Need for vaccination - ICD9: V05.9, ICD10: Z23 - INFLUENZA VACCINE QUADRIVALENT AGE 3 YRS PLUS + IM 4. Calcaneal spur, unspecified laterality - ICD9: 726.73, ICD10: M77.30 - see above Norberto Danielle DO Return if no improvement. Follow up with Norberto Danielle DO. Discussed risks, benefits, alternatives, and potential side effects of medications. Patient/Guardian expressed understanding and agreed with the plan. See patient instructions. Norberto Danielle DO [address] [place] [address] XR FOOT 3V AP/LAT/OBL Observed: 03/25/2018 Status: F Source: [facility] 3:02 PM [facility] REPOSITORY * * *Final Report* * * DATE OF EXAM: Mar 25 2018 3:02PM WOX [id number] - XR FOOT 3V AP/LAT/OBL GEMMA / PROCEDURE REASON: Pain of plantar aspect of heel * * * * Physician Interpretation * * * * HISTORY: 37-YEAR-OLD MALE WITH Pain of plantar aspect of heel . No injury. Plantar heel pain bilaterally for 10 plus years. TECHNIQUE: XR FOOT 3V AP/LAT/OBL GEMMA Laterality: BILATERAL Number of different views (projections): 3 each COMPARISON: None RESULT: Mild narrowing DIP joint of second digit bilaterally. Large calcaneal enthesophyte insertion plantar fascia bilaterally. Bones and joints the foot otherwise normal. No fracture. No erosions, no joint of the joint space narrowing. IMPRESSION: NO ACUTE BONY ABNORMALITY. BILATERAL CALCANEAL ENTHESOPHYTES. Brain Surgeon: CHRISTIAN Transcribe Date/Time: Mar 26 2018 2:28P Dictated by : SIERRA WADE MD This examination was interpreted and the report reviewed and electronically signed by: SIERRA WADE MD on Mar 26 2018 2:31PM EST [id number] Observed: 03/25/2018 Status: COMPLETED Source: [place] 2:48 PM [facility] REPOSITORY HNO ID: [id number] Author: Yvonne Campbell (Rt) Hakeem Guerrero Service: (none) Author Type: Teacher Public Health Type: Progress Notes Filed: 03/25/2018 3:01 PM Note Text: Radiology Service Progress Note PATIENT NAME: Harinder Hernandez DATE OF SERVICE: March 25, 2018 TIME: 2:48 PM PATIENT IDENTITY VERIFICATION COMPLETED USING TWO (2) METHODS: Patient confirmed name verbally and Date of . PATIENT GENDER DATA: Male PATIENT RELEVANT IMPLANT DATA REVIEWED: Not Applicable RADIOLOGY DEPARTMENT: General X-ray: Exam(s) Completed: Lower Extremity X-Ray(s): Foot, Bilateral and Wt. Bearing: PERIPHERAL IV DATA: Not applicable SIGNED BY: RT Nakul March 25, 2018 2:48 PM CNOV Observed: 03/25/2018 Status: COMPLETED Source: [place] 2:00 PM [facility] REPOSITORY Office Visit (FAMPWS) HARINDER HERNANDEZ ([id number]) 1980 M Date Time Provider Department 03/25/18 2:00 PM NORBERTO DANIELLE FAMPWS During your visit today, we recorded the following information about you: Temperature Pulse Respiration Blood pressure 98.1 degrees 80/minute 16/minute 130/84 Weight 131.5 kg Tatianna Edwards LPN 03/25/2018 5:05 PM Signed 37 year old male here for INACTIVATED INFLUENZA VACCINE. 4225-1568 Season Patient is identified by name and date of : Yes [] CONTRAINDICATIONS color enhanced section Age less than 6 months? No Allergy to eggs, chicken, chicken feathers, or chicken dander? No Allergy to thimerosal (a preservative) or formaldehyde, gelatin? No History of severe reaction to any vaccine component or a previous dose of influenza vaccination? No History of Guillain-[place] Syndrome within 6 weeks after a previous influenza vaccine? No Patient is not moderately or severely ill? No Current temperature greater or equal to 100.4F? No History of Bone Marrow Transplant prior 6 months or solid organ transplant in the past 3 months ? No History of fainting after a prior injection or medical procedure? No- ? If patient has fainted in the past, the CDC recommends sitting or lying down for 15 minutes after the vaccination. [] VERIFICATION color enhanced section Was the answer Yes for any of the above contraindications? No contraindications present. Acceptable to proceed with vaccine. Patient/guardian agrees the above answers are true to the best of their knowledge? Yes Flu vaccine information sheet given? Yes See immunization activity in [facility] for details of immunizations adminstered today. Patient age: [age] year old For The 1186-3956 Flu Season 6-35 months old: Fluzone 0.25 ml - IM (Preservative Free) 3 years of age: Fluzone 0.5 ml - IM (Preservative Free) 3 years and older: Fluzone 0.5 ml- IM-(with Preservatives) 65+ years old: 2-49 years old Fluzone High-Dose 0.5 ml - IM (Preservative Free) FLUMIST- intranasal REMEMBER: If patient is less than 9 years of age and this is the first vaccine of Influenza to be received in any flu season, they should receive a second dose in one months time. Norberto Danielle DO 03/25/2018 2:27 PM Signed Norberto Danielle DO 03/25/2018 5:05 PM Signed CC: Harinder Hernandez is a 37 year old male who presents to the office for several concerns HPI: Blood in stool, off and on to small degree for several years, but only when wiping and only occasional. 2 weeks ago he had 2 days of bright red bleeding with a bowel movement, no associated rectal pain, no associated fevers or chills or rectal spasmic discomfort. No abdominal pain or cramping associated with it. No obvious hemorrhoids B/l heel pain, off and on for years, 12+ years. Xray last was >6 years ago and told has large heel spurs. Now symptoms are becoming more significant and persistent and lasting for hours, occurring on a daily basis, worse in the morning when waking up from bed, sometimes better as day goes on but also worse after getting up to walk after prolonged sitting. Use of ice and stretching foot and NSAIDs intermittently. PAST MEDICAL HISTORY Diagnosis Date - Hypercholesteremia - Major depressive disorder 06/02/2015 [facility] - Major depressive disorder, recurrent severe without psychotic features (HCC) 06/02/2015 [facility] - Obesity (BMI 30-39.9) PAST SURGICAL HISTORY Procedure Laterality Date - PAST SURGICAL HISTORY OF 2010 abscess chest - VASECTOMY 2018 Current Outpatient Prescriptions: pantoprazole DR (PROTONIX) 40 mg tablet Take 1 tablet by mouth once daily. therapeutic multivitamin (THERA VITAMIN) tablet Take 1 tablet by mouth once daily. dmtxznpx-fav-cpeczz-vit C-hyal 143-744-765-10 mg tab Take by mouth. No current facility-administered medications for this visit. ALLERGIES No Known Allergies Social History Marital status: Spouse name: Years of education: Number of children: 1 Social History Main Topics Smoking status: Former Smoker Packs/day: 1.00 Years: 10.00 Smokeless tobacco: Never Used Comment: quit 2008 Alcohol use: Yes Comment: 1-2 beers/ d Drug use: No Sexual activity: Yes Partners with: Female Social History Narrative - works in [employer] at [employer], son max born 2011 ROS: See HPI PE: BP 130/84 Pulse 80 Temp (Src) 98.1 (Left Tympanic) Resp 16 Wt 290 lb (131.5kg) Gen: AANDOX3, NAD, non-toxic appearing HEENT: PERRLA, EOMs intact b/l, nares without drainage, pharynx without erythema, exudate, lesions, or drainage. Uvula midline. Neck: No LAD, no thyromegaly, no meningismus. CV: RRR, no murmur Lungs: CTA b/l, no wheezing Skin: No rashes, lesions, or wounds on exposed skin. + heel plantar surface TTP b/l feet, normal appearing arch and plantar tendon Rectal exam with external tag at 12 o oclock position, no fissures anal region present. + internal hemorrhoid at 12 and 6 oclock positions ASSESSMENT/PLAN: 1. Internal hemorrhoids - ICD9: 455.0, ICD10: K64.8 (primary diagnosis) - rx prn as below, if symptoms worsen then would recommend colonoscopy as d/w him today - HYDROCORTISONE ACETATE 25 MG RECTAL SUPPOSITORY 2. Pain of plantar aspect of heel - ICD9: 729.5, ICD10: M79.673 - xray and referral, given information on stretches and ice massage and heel rolling to do, long standing worsening symptoms - XR FOOT GENERAL 3V AP/LAT/OBL BILAT - CONSULT TO PODIATRY 3. Need for vaccination - ICD9: V05.9, ICD10: Z23 - INFLUENZA VACCINE QUADRIVALENT AGE 3 YRS PLUS + IM 4. Calcaneal spur, unspecified laterality - ICD9: 726.73, ICD10: M77.30 - see above Norberto Danielle DO Return if no improvement. Follow up with Norberto Danielle DO. Discussed risks, benefits, alternatives, and potential side effects of medications. Patient/Guardian expressed understanding and agreed with the plan. See patient instructions. Norberto Danielle DO [address] [place] [address] Referring Provider: SELF [[id number]] Allergies As of Date: 03/25/2018 (No Known Allergies) Date Reviewed: 03/25/2018 Reviewed by: Tatianna Edwards LPN - Fully Assessed Reason for Visit: Rectal Problem [93] Imm/Inj [58] Cmt: Flu Vaccine Reason For Visit History Recorded Primary Visit Diagnosis:Internal hemorrhoids [K64.8] Other Visit Diagnoses:Pain of plantar aspect of heel [M79.673] Need for vaccination [Z23] Calcaneal spur, unspecified laterality [M77.30] Order(s):INFLUENZA VACCINE QUADRIVALENT AGE 3 YRS PLUS + IM [[id number]] Order #: [id number] XR FOOT GENERAL 3V AP/LAT/OBL BILAT [[id number]] Order #: [id number] FUTURE CONSULT TO PODIATRY [9034] Order #: [id number]: 1 hydrocortisone (ANUSOL-HC) 25 mg suppository1 Suppository by RECTAL route twice daily as needed (rectal bleeding).Disp: 30 SuppositoryRfl: 1 Prescriptions as of 03/25/2018 Sig: PANTOPRAZOLE 40 MG TABLET,DEL* Take 1 tablet by mouth once d* THERAPEUTIC MULTIVITAMIN TABL* Take 1 tablet by mouth once d* FYNONCBW-LCJ-LJJWHRVKG-C-HYAL* Take by mouth. HYDROCORTISONE ACETATE 25 MG * 1 Suppository by RECTAL route* Problem List As Of Date 03/25/2018 Noted Resolved Well adult [[id number]] INVALID FOR* GERD (gastroesophageal reflux disease) [K21.9] INVALID FOR* More... Obesity, Class III, BMI 40-49.9 (morbid obesity*INVALID FOR* Well adult exam [Z00.00] INVALID FOR* Pain of plantar aspect of heel [M79.673] INVALID FOR* Internal hemorrhoids [K64.8] INVALID FOR* Calcaneal spur [M77.30] INVALID FOR* Other instructions from your clinician: Prescriptions ordered this encounter Disp Refills Start End HYDROCORTISONE ACETATE 25 MG RECTAL * 30 S* 1 03/25/2018 Route: RECTAL Si Suppository by RECTAL route twice daily as needed (rectal bleeding). Annotated image of PLANTAR FASCIITIS TREATMENT PROTOCOL PG 1 last updated by Norberto Danielle on 03/25/2018 2:26 PM Annotated image of PLANTAR FASCIITIS TREATMENT PROTOCOL PG 2 last updated by Norberto Danielle on 03/25/2018 2:26 PM Annotated image of FAMP PLANTAR FASCIITIS PG1 last updated by Norberto Danielle on 03/25/2018 2:26 PM Annotated image of FAMP PLANTAR FASCIITIS PG2 last updated by Norberto Danielle on 03/25/2018 2:26 PM Annotated image of FAMP PLANTAR FASCIITIS PG3 last updated by Norberto Danielle on 03/25/2018 2:26 PM Encounter Status:Closed by NORBERTO DANIELLE DO on 03/25/18 PROGRESS Observed: 03/25/2018 Status: COMPLETED Source: [place] 1:56 PM [facility] [place] REPOSITORY O ID: [id number] Author: Tatianna Edwards LPN Service: (none) Author Type: (none) Type: Progress Notes Filed: 03/25/2018 5:05 PM Note Text: 37 year old male here for INACTIVATED INFLUENZA VACCINE. 9634-0837 Season Patient is identified by name and date of : Yes [] CONTRAINDICATIONS color enhanced section Age less than 6 months? No Allergy to eggs, chicken, chicken feathers, or chicken dander? No Allergy to thimerosal (a preservative) or formaldehyde, gelatin? No History of severe reaction to any vaccine component or a previous dose of influenza vaccination? No History of Guillain-[place] Syndrome within 6 weeks after a previous influenza vaccine? No Patient is not moderately or severely ill? No Current temperature greater or equal to 100.4F? No History of Bone Marrow Transplant prior 6 months or solid organ transplant in the past 3 months ? No History of fainting after a prior injection or medical procedure? No- ? If patient has fainted in the past, the CDC recommends sitting or lying down for 15 minutes after the vaccination. [] VERIFICATION color enhanced section Was the answer Yes for any of the above contraindications? No contraindications present. Acceptable to proceed with vaccine. Patient/guardian agrees the above answers are true to the best of their knowledge? Yes Flu vaccine information sheet given? Yes See immunization activity in [facility] for details of immunizations adminstered today. Patient age: [age] year old For The 5688-1613 Flu Season 6-35 months old: Fluzone 0.25 ml - IM (Preservative Free) 3 years of age: Fluzone 0.5 ml - IM (Preservative Free) 3 years and older: Fluzone 0.5 ml- IM-(with Preservatives) 65+ years old: 2-49 years old Fluzone High-Dose 0.5 ml - IM (Preservative Free) FLUMIST- intranasal REMEMBER: If patient is less than 9 years of age and this is the first vaccine of Influenza to be received in any flu season, they should receive a second dose in one months time. CNPTOUTRSHAQUILLE Observed: 03/10/2018 Status: COMPLETED Source: [place] 12:00 AM [facility] REPOSITORY Patient Outreach (FAMPST) HARINDER HERNANDEZ ([id number]) 1980 M Date Time Provider Department 03/10/18 [facility] During your visit today, we recorded the following information about you: Allergies As of Date: 03/10/2018 (No Known Allergies) Date Reviewed: 10/28/2016 Reviewed by: Tatianna Edwards LPN - Fully Assessed Visit Diagnosis:Medication management [Z79.899] Order(s):LIPID PANEL BASIC [SQLIPB] Order #: [id number] FUTURE Prescriptions as of 03/10/2018 Sig: PANTOPRAZOLE 40 MG TABLET,DEL* Take 1 tablet by mouth once d* THERAPEUTIC MULTIVITAMIN TABL* Take 1 tablet by mouth once d* MYWYIJCB-RXG-KZMOKJIPX-C-HYAL* Take by mouth. Problem List As Of Date 03/10/2018 Noted Resolved Well adult [[id number]] INVALID FOR* GERD (gastroesophageal reflux disease) [K21.9] INVALID FOR* More... Obesity, Class III, BMI 40-49.9 (morbid obesity*INVALID FOR* Well adult exam [Z00.00] INVALID FOR* Encounter Status:Closed by [employer] on 04/10/18 PROGRESS Observed: 11/05/2017 Status: COMPLETED Source: [place] 4:41 PM [facility] REPOSITORY HNO ID: [id number] Author: Norberto Danielle Service: (none) Author Type: Physician Type: Progress Notes Filed: 11/05/2017 4:43 PM Note Text: CC: Harinder Hernandez is a 37 year old male who presents to the office for infection HPI: Overall is doing well, no new concerns. GERD, well controlled with pantoprazole, taking as prescribed 40 mg a day, no dysphagia or other symptoms HM: UTD PAST MEDICAL HISTORY Diagnosis Date - Hypercholesteremia - Major depressive disorder 06/02/2015 [facility] - Major depressive disorder, recurrent severe without psychotic features (HCC) 06/02/2015 [facility] - Obesity (BMI 30-39.9) PAST SURGICAL HISTORY Procedure Laterality Date - PAST SURGICAL HISTORY OF 2010 abscess chest - VASECTOMY 2017 Social History: Social History Substance Use Topics - Smoking status: Former Smoker Packs/day: 1.00 Years: 10.00 - Smokeless tobacco: Never Used Comment: quit 2008 - Alcohol use Yes Comment: 1-2 beers/ d FAMILY HISTORY Problem Relation Age of Onset - Breast Cancer Mother - Heart Mother from chemo - Diabetes Father - Cancer Maternal Grandmother Lung - Cancer Maternal Grandfather pancreatic - NPH [OTHER] Sister - Cancer Maternal Aunt Breast - Cancer Maternal Uncle Colorectal Current Outpatient prescriptions: pantoprazole DR (PROTONIX) 40 mg tablet Take 1 tablet by mouth once daily. therapeutic multivitamin (THERA VITAMIN) tablet Take 1 tablet by mouth once daily. hhcwysjf-vtz-cdttox-vit C-hyal [id number] mg tab Take by mouth. Allergies: ALLERGIES No Known Allergies ROS: See HPI PE: 11/05/17 1552 BP: 110/70 Pulse: 76 Resp: 16 Temp: 36.4 ?C (97.5 ?F) TempSrc: Left Tympanic Weight: 129.3 kg (285 lb) Height: 177.2 cm (5' 9.75) Gen: AANDO, NAD, non-toxic appearing, Pleasant, cooperative HEENT: NT/AC, PERRLA, wearing glasses, EOMs intact b/l, nares clear and patent b/l, pharynx without erythema, exudate or lesions. Uvula midline. MMM, EACs without erythema or debris. TMs pearly pedraza with intact landmarks b/l. Neck: supple, No cervical LAD, no thyromegaly, no carotid bruits CV: RRR, normal S1 and S2, no murmurs, no gallops, no rubs, Pulses 2+ and symmetric in UE and LE b/l Lungs: normal respiratory effort, CTA b/l, no wheezing or rhonchi or rales Abd: soft, obese, NT, ND, +BS, no hepatosplenomegaly MS: FROM all 4 extremities Neuro: CN II-XII intact b/l, strength 5/5 b/l UE and LE, DTRs 2/4 UE and LE, sensation intact. Skin: warm, dry, intact, scattered angiomas and solar lentigos diffusely ASSESSMENT/PLAN: 1. Well adult exam - ICD9: V70.0, ICD10: Z00.00 (primary diagnosis) - Recommended regular aerobic exercise. - Discussed need and benefit for weight loss. BMI 41.19 kg/(m2) - Follow up for annual exam in one year. 2. Gastroesophageal reflux disease without esophagitis - ICD9: 530.81, ICD10: K21.9 - Discussed lifestyle modifications including losing weight, limiting caffeine, no meals three hours before sleep and head of bed elevation - PANTOPRAZOLE 40 MG TABLET,DELAYED RELEASE 3. Obesity, Class III, BMI 40-49.9 (morbid obesity) (HCC) - ICD9: 278.01, ICD10: E66.01 Norberto Danielle DO To ER if develops chest pain, shortness of breath, or severe worsening of symptoms. Discussed risks, benefits, alternatives, and potential side effects of medications. Patient expressed understanding and agreed with the plan. Norberto Danielle DO [address] [place] [address] CNOV Observed: 11/05/2017 Status: COMPLETED Source: [place] 3:40 PM [facility] REPOSITORY Office Visit (FAMPWS) HARINDER HERNANDEZ ([id number]) 1980 M Date Time Provider Department 11/05/17 3:40 PM NORBERTO DANIELLE During your visit today, we recorded the following information about you: Temperature Pulse Respiration Blood pressure 97.5 degrees 76/minute 16/minute 110/70 Weight Height 129.3 kg 1.772 m Norberto Danielle DO 11/05/2017 4:43 PM Signed CC: Harinder Hernandez is a 37 year old male who presents to the office for infection HPI: Overall is doing well, no new concerns. GERD, well controlled with pantoprazole, taking as prescribed 40 mg a day, no dysphagia or other symptoms HM: UTD PAST MEDICAL HISTORY Diagnosis Date - Hypercholesteremia - Major depressive disorder 06/02/2015 [facility] - Major depressive disorder, recurrent severe without psychotic features (HCC) 06/02/2015 [facility] - Obesity (BMI 30-39.9) PAST SURGICAL HISTORY Procedure Laterality Date - PAST SURGICAL HISTORY OF 2010 abscess chest - VASECTOMY 2018 Social History: Social History Substance Use Topics - Smoking status: Former Smoker Packs/day: 1.00 Years: 10.00 - Smokeless tobacco: Never Used Comment: quit 2008 - Alcohol use Yes Comment: 1-2 beers/ d FAMILY HISTORY Problem Relation Age of Onset - Breast Cancer Mother - Heart Mother from chemo - Diabetes Father - Cancer Maternal Grandmother Lung - Cancer Maternal Grandfather pancreatic - NPH [OTHER] Sister - Cancer Maternal Aunt Breast - Cancer Maternal Uncle Colorectal Current Outpatient prescriptions: pantoprazole DR (PROTONIX) 40 mg tablet Take 1 tablet by mouth once daily. therapeutic multivitamin (THERA VITAMIN) tablet Take 1 tablet by mouth once daily. usylmxdn-fzj-dtwagd-vit C-hyal [id number] mg tab Take by mouth. Allergies: ALLERGIES No Known Allergies ROS: See HPI PE: 11/05/17 1552 BP: 110/70 Pulse: 76 Resp: 16 Temp: 36.4 ?C (97.5 ?F) TempSrc: Left Tympanic Weight: 129.3 kg (285 lb) Height: 177.2 cm (5' 9.75) Gen: AANDO, NAD, non-toxic appearing, Pleasant, cooperative HEENT: NT/AC, PERRLA, wearing glasses, EOMs intact b/l, nares clear and patent b/l, pharynx without erythema, exudate or lesions. Uvula midline. MMM, EACs without erythema or debris. TMs pearly pedraza with intact landmarks b/l. Neck: supple, No cervical LAD, no thyromegaly, no carotid bruits CV: RRR, normal S1 and S2, no murmurs, no gallops, no rubs, Pulses 2+ and symmetric in UE and LE b/l Lungs: normal respiratory effort, CTA b/l, no wheezing or rhonchi or rales Abd: soft, obese, NT, ND, +BS, no hepatosplenomegaly MS: FROM all 4 extremities Neuro: CN II-XII intact b/l, strength 5/5 b/l UE and LE, DTRs 2/4 UE and LE, sensation intact. Skin: warm, dry, intact, scattered angiomas and solar lentigos diffusely ASSESSMENT/PLAN: 1. Well adult exam - ICD9: V70.0, ICD10: Z00.00 (primary diagnosis) - Recommended regular aerobic exercise. - Discussed need and benefit for weight loss. BMI 41.19 kg/(m2) - Follow up for annual exam in one year. 2. Gastroesophageal reflux disease without esophagitis - ICD9: 530.81, ICD10: K21.9 - Discussed lifestyle modifications including losing weight, limiting caffeine, no meals three hours before sleep and head of bed elevation - PANTOPRAZOLE 40 MG TABLET,DELAYED RELEASE 3. Obesity, Class III, BMI 40-49.9 (morbid obesity) (HCC) - ICD9: 278.01, ICD10: E66.01 Norberto Danielle DO To ER if develops chest pain, shortness of breath, or severe worsening of symptoms. Discussed risks, benefits, alternatives, and potential side effects of medications. Patient expressed understanding and agreed with the plan. Norberto Danielle DO [address] [place] [address] Referring Provider: NORBERTO DANIELLE [[id number]] Allergies As of Date: 11/05/2017 (No Known Allergies) Date Reviewed: 10/28/2016 Reviewed by: Tatianna Edwards LPN - Fully Assessed Reason for Visit: Physical [83] Primary Visit Diagnosis:Well adult exam [Z00.00] Other Visit Diagnoses:Gastroesophageal reflux disease without esophagitis [K21.9] Obesity, Class III, BMI 40-49.9 (morbid obesity) ([facility]) [E66.01] Order(s):pantoprazole DR (PROTONIX) 40 mg tabletTake 1 tablet by mouth once daily.Disp: 90 tabletRfl: 3 Prescriptions as of 11/05/2017 Sig: PANTOPRAZOLE 40 MG TABLET,DEL* Take 1 tablet by mouth once d* THERAPEUTIC MULTIVITAMIN TABL* Take 1 tablet by mouth once d* RQWEMTRT-YYC-MHPDIUMSY-C-HYAL* Take by mouth. Problem List As Of Date 11/05/2017 Noted Resolved Well adult [[id number]] INVALID FOR* GERD (gastroesophageal reflux disease) [K21.9] INVALID FOR* More... Obesity, Class III, BMI 40-49.9 (morbid obesity*INVALID FOR* Well adult exam [Z00.00] INVALID FOR* Prescriptions ordered this encounter Disp Refills Start End PANTOPRAZOLE 40 MG TABLET,DELAYED RE* 90 t* 3 11/05/2017 Route: ORAL Sig: Take 1 tablet by mouth once daily. Medications Discontinued During This Encounter pantoprazole DR (PROTONIX) 20 mg tab* 11/05/2017 Class: Historical Med Route: ORAL Sig: Take 20 mg by mouth once daily. Disc: Reason for discontinue is not on file. Omeprazole Magnesium (PRILOSEC OTC) * 60 t* 3 04/26/2015 11/05/2017 Route: ORAL Sig: Take 1 tablet by mouth twice daily before meals. 1/2 hr before meal. Disc: Reason for discontinue is not on file. pantoprazole DR (PROTONIX) 40 mg tab* 90 t* 3 10/28/2016 11/05/2017 Route: ORAL Sig: Take 1 tablet by mouth once daily. Disc: Reason for discontinue is not on file. Encounter Status:Closed by NORBERTO DANIELLE DO on 11/05/17 SEMEN ANALYSIS POST Collected: 11/05/2017 Status: C Source: FRANKO VAS 8:37 AM [facility] [place] TYPE CODE TESTS RESULT OUT OF RANGE REFERENCE UNITS LAB L200.1000 Normal SEMEN ABSENT POST VAS Result Comment: CYTOSPIN PREPARATION USED FOR CONCENTRATION OF SPECIMEN PRIOR TO STAINING AND EXAMINATION Sperm absent. Cb Vyas M.D. 11/06/17 AMENDED REPORT 11/06/17 1103 SEMEN POST VAS previously reported as: ABSENT CYTOSPIN PREPARATION USED FOR CONCENTRATION OF SPECIMEN PRIOR TO STAINING AND EXAMINATION Performed By: #### L200.1000 #### [facility] [address], [address] SURGERY VISIT REPORT Observed: 10/07/2017 Status: F Source: CAYUTA 4:39 PM [facility] [place] [facility] [address] [place] [address] OFFICE VISIT Date of Service: 10/07/17 MR#: [id number] Acct: [id number] Name: HARINDER HERNANDEZ Rep #: [id number] : 1980 Provider: Jeb Colbert MD Age/Sex: 37/M Location: [facility] Status: Signed Intake Intake Visit Reasons: F/U Swollen Testicle Chief Complaint: post op swelling and redness Drapery Hanger Required: No Is patient in pain?: No Allergies No Known Allergies Allergy (Verified 10/07/17 15:35) Medications antiarthritic combination no.2 900 mg tablet mg PO 06/09/17 [History Confirmed 10/07/17] multivitamin,hk-bsvv-tgwhhlqo tablet 1 tab PO QDAY 06/09/17 [History Confirmed 10/07/17] pantoprazole 40 mg tablet,delayed release 40 mg PO QAM 06/09/17 [History Confirmed 10/07/17] ciprofloxacin 500 mg tablet 500 mg PO BID #14 tab 09/17/17 [Rx Confirmed 10/07/17] PFSH Medical History Sterilization (Acute) GERD (gastroesophageal reflux disease) (Acute) Surgical History Encounter for incision and drainage procedure (Acute) S/P vasectomy (Acute) Social History Smoking Status: Former smoker alcohol intake: never substance use type: does not use HPI HPI HPI: HARINDER HERNANDEZ, is a 37 M who presents to the office today for surgical follow-up status post bilateral partial vasectomy of September 05, 2017. Postoperatively the patient had some mild swelling and erythema of the right testicle. He started taking eight 325 mg per day. He then developed a hematoma. We treated him briefly with ciprofloxacin. He has been treated initially with ice now warmth and compression. He returns now for follow-up. He states that over the past week he has been much more comfortable Exam Other: Right testicle remains enlarged. Left testicle is normal. No erythema. No drainage Assessment AND Plan 1. Encounter for sterilization Z30.2 Plan On a previous visit I had performed an ultrasound inspection of his right testicle. The findings were consistent with a hematoma. I elected not to attempt any type of aspiration or drainage. Clearly with conservative measures now he is markedly improved. He is not completely resolved. We discussed ongoing treatment options. He will continue with the extra-support. He will delay his specimen submission for at least 3 weeks additional. He is well aware that he needs to continue to utilize other means of control. He has had an opportunity to ask and have questions answered. Further office visit can be as he needs. Jeb Colbert M.D., F.A.C.S. Coding Level of Care Code Global Post Op Diagnoses Encounter for sterilization Z30.2 10/07/17 1639 <Electronically signed by Jeb Colbert MD> Date Jeb Colbert MD Cosigner Signature: Date (if applicable) CC: SURGERY VISIT REPORT Observed: 09/23/2017 Status: F Source: FRANKO 4:50 PM [facility] [place] [facility] [address] [address] OFFICE VISIT Date of Service: 09/23/17 MR#: [id number] Acct: [id number] Name: HARINDER HERNANDEZ Rep #: [id number] : 1980 Provider: Jeb Colbert MD Age/Sex: 37/M Location: [facility] Status: Signed Intake Intake Visit Reasons: Scrotal hematoma Chief Complaint: post op swelling and redness Drapery Hanger Required: No Is patient in pain?: Yes Allergies No Known Allergies Allergy (Verified 09/23/17 16:03) Medications antiarthritic combination no.2 900 mg tablet mg PO 06/09/17 [History Confirmed 09/23/17] multivitamin,hm-tvqm-kqwaobot tablet 1 tab PO QDAY 06/09/17 [History Confirmed 09/23/17] pantoprazole 40 mg tablet,delayed release 40 mg PO QAM 06/09/17 [History Confirmed 09/23/17] ciprofloxacin 500 mg tablet 500 mg PO BID #14 tab 09/17/17 [Rx Confirmed 09/23/17] PFSH Medical History Sterilization (Acute) GERD (gastroesophageal reflux disease) (Acute) Surgical History Encounter for incision and drainage procedure (Acute) S/P vasectomy (Acute) Social History Smoking Status: Former smoker alcohol intake: never substance use type: does not use HPI HPI HPI: HARINDER HERNANDEZ, is a 37 M who presents to the office today for surgical follow-up status post bilateral partial vasectomy. The patient had some swelling postoperatively. He then initiated aspirin therapy up to 8 tablets per day. He then developed a right scrotal hematoma. More aggressive conservative measures were recommended. He returns now for follow-up. Exam Other: The right scrotal and groin ecchymosis has resolved. There is still mild nonpitting edema of the scrotum bilaterally. No significant erythema. Some mild tenderness particularly of the right testicle. But it is notably improved on my exam Assessment AND Plan 1. Encounter for sterilization Z30.2 Plan I believe that the patient actually is more improved than what he is describing. The ecchymosis induration of the right scrotal in particular is notably improved. Fortunately the patient has stopped his aspirin therapy. However now he is taken up to 6 500 mg Tylenol tablets per day. I have cautioned him him on decreasing that dosage as well. I have reassured him that the current therapy of support and intermittent ice and time will resolve his issues. He is completing his antibiotic therapy and I do not believe that he needs any additional. I anticipate seeing him back in the office in 2 weeks time. At this point I do not believe that he will require any additional surgical intervention. Jeb Colbert M.D., F.A.C.S. Coding Level of Care Code Global Post Op Diagnoses Encounter for sterilization Z30.2 09/23/17 6830 <Electronically signed by Jeb Colbert MD> Date Jeb Colbert MD Cosigner Signature: Date (if applicable) CC: SURGERY VISIT REPORT Observed: 09/18/2017 Status: F Source: CAYUTA 10:03 AM [facility] [address] [place] [address] OFFICE VISIT Date of Service: 09/17/17 MR#: [id number] Acct: [id number] Name: HARINDER HERNANDEZ Rep #: [id number] : 1980 Provider: Jeb Colbert MD Age/Sex: 37/M Location: [facility] Status: Signed Intake Intake Visit Reasons: SWOLLEN TESTICLES Chief Complaint: post op swelling and redness Drapery Hanger Required: No Is patient in pain?: Yes (Right Testicle) Pain scale (1-10): 3 Allergies No Known Allergies Allergy (Verified 09/11/17 07:57) Medications antiarthritic combination no.2 900 mg tablet mg PO 06/09/17 [History Confirmed 09/11/17] multivitamin,ig-uqyh-tolfogbz tablet 1 tab PO QDAY 06/09/17 [History Confirmed 09/11/17] pantoprazole 40 mg tablet,delayed release 40 mg PO QAM 06/09/17 [History Confirmed 09/11/17] ciprofloxacin 500 mg tablet 500 mg PO BID #14 tab 09/17/17 [Rx Confirmed 09/17/17] [facility] Medical History Sterilization (Acute) GERD (gastroesophageal reflux disease) (Acute) Surgical History Encounter for incision and drainage procedure (Acute) S/P vasectomy (Acute) Social History Smoking Status: Former smoker alcohol intake: never substance use type: does not use HPI HPI HPI: HARINDER HERNANDEZ, is a 37 M I am following s/p vasectomy. Dr. Colbert and Dr. Blakely performed a vasectomy on 09/05/17. Patient had a follow-up visit 1 week post-op noting swelling and some redness. He was placed on Cipro x 1 week. Patient followed up the next day noting pain and swelling. He was told to use NSAIDS. Over the weekend he noted he was taking 2 325 mg aspirin every 6 hours along with 4 ibuprofen every 8 hours and naproxen three times per day. Patient stated he had increased swelling. He notes the pain is more of a dull. He notes he is urinating well. 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 He is currently wearing boxer briefs. Exam Const General: cooperative, healthy appearing, comfortable, no acute distress External: no erythema Penis: normal penis Scrotum: scrotal swelling (Moderate sized hematoma noted) on the right Testes: normal Assessment AND Plan Problems 1. Scrotal hematoma S30.22XA Plan - Stop all NSAIDs and aspirin - Take Tylenol only as needed - Continue to use ice to decrease the swelling for the next 3 days - Wear compression shorts, jock strap, or double up on boxer briefs to assist with decreasing the swelling - Call with progress report on Friday - May switch to heat over the weekend - Will prescribe another weeks worth of Cipro - Follow-up as needed Medications Changed: From: ciprofloxacin (Cipro) administer within 120 minutes prior to mgif710 mg PO BID ical incision Coding Level of Care Code Global Post Op Diagnoses Scrotal hematoma S30.22XA 09/18/17 1003 <Electronically signed by Jeb Colbert MD> Date Jeb Colbert MD 09/17/17 1038<Electronically signed by Kell Barahona PA-C> Cosigner Signature: Date (if applicable) Kell Barahona PA-C CC: SURGERY VISIT REPORT Observed: 09/11/2017 Status: F Source: CAYUTA 8:28 AM [facility] [address] [place] [address] OFFICE VISIT Date of Service: 09/11/17 MR#: [id number] Acct: [id number] Name: HARINDER HERNANDEZ Rep #: [id number] : 1980 Provider: Jeb Colbert MD Age/Sex: 37/M Location: [facility] Status: Signed Intake Intake Visit Reasons: swollen testicle Chief Complaint: post op swelling and redness Drapery Hanger Required: No Is patient in pain?: Yes Allergies No Known Allergies Allergy (Verified 09/11/17 07:57) Medications antiarthritic combination no.2 900 mg tablet mg PO 06/09/17 [History Confirmed 09/11/17] multivitamin,kr-jhck-ozqwyezp tablet 1 tab PO QDAY 06/09/17 [History Confirmed 09/11/17] pantoprazole 40 mg tablet,delayed release 40 mg PO QAM 06/09/17 [History Confirmed 09/11/17] ciprofloxacin 500 mg tablet 500 mg PO BID #14 tab 09/10/17 [Rx Confirmed 09/11/17] PFSH Medical History Sterilization (Acute) GERD (gastroesophageal reflux disease) (Acute) Surgical History Encounter for incision and drainage procedure (Acute) S/P vasectomy (Acute) Social History Smoking Status: Former smoker alcohol intake: never substance use type: does not use HPI HPI HPI: HARINDER HERNANDEZ, is a 37 M who presents to the office today for ongoing follow-up regarding postvasectomy issues. I saw the patient yesterday. I thought that he had mild erythema of the right surgical site. I initiated him on ciprofloxacin 5 mg twice daily. He is taken 3 tablets. His thought that his scrotum was significantly more swollen today. He phone called in and has a repeat appointment for evaluation. Exam Other: Scrotum is generally mildly swollen. I am not detecting significant change from yesterday. Minimal erythema on the right seemingly improved from yesterday. Assessment AND Plan 1. 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 So as to avoid the potential of evolution into a scrotal abscess I recommend that he stay off of work today. I have recommended leg elevation. I for recommended supportive undergarments and intermittent ice. I recommend the use of nonsteroidal anti-inflammatory agents. He will continue his ciprofloxacin. I believe that he is if he is improved after today then he can resume work tomorrow. He has been provided a work release for today. Jeb Colbert M.D., F.A.C.S. Coding Level of Care Code Global Post Op Diagnoses Encounter for sterilization Z30.2 09/11/17 0828 <Electronically signed by Jeb Colbert MD> Date Jeb Colbert MD Cosigner Signature: Date (if applicable) CC: OFFICE VISIT REPORT Observed: 09/10/2017 Status: F Source: FRANKO 5:52 PM [place] [address] [address] OFFICE VISIT Date of Service: 09/10/17 MR#: [id number] Acct: [id number] Patient: HARINEDR HERNANDEZ Rep #: [id number] : 1980 Provider: Jeb Colbert MD Age/Sex: 37/M Location: [facility] Status: Signed Intake Intake Visit Reasons: F/U VASECTOMY 09/05/2017 Allergies No Known Allergies Allergy (Verified 09/05/17 13:05) Medications antiarthritic combination no.2 900 mg tablet mg PO 06/09/17 [History Confirmed 09/05/17] multivitamin,qp-cgmz-uyukcmka tablet 1 tab PO QDAY 06/09/17 [History Confirmed 09/05/17] pantoprazole 40 mg tablet,delayed release 40 mg PO QAM 06/09/17 [History Confirmed 09/05/17] acetaminophen 300 mg-codeine 30 mg tablet 1 tab PO Q6H PRN #10 tab 09/05/17 [Rx Confirmed 09/05/17] Assessment AND Plan Orders Orders: 09/10/171751 <Electronically signed by Jeb Colbert MD> Date Jeb Colbert MD Cosigner Signature: Date (if applicable) CC: SURGERY VISIT REPORT Observed: 09/10/2017 Status: F Source: CAYUTA 12:34 PM [facility] [address] [place] [address] OFFICE VISIT Date of Service: 09/10/17 MR#: [id number] Acct: [id number] Name: HARINDER HERNANDEZ Rep #: [id number] : 1980 Provider: Jeb Colbert MD Age/Sex: 37/M Location[facility] Status: Signed Intake Intake Visit Reasons: F/U VASECTOMY 09/05/2017 Chief Complaint: vasectomy Drapery Hanger Required: No Is patient in pain?: No Allergies No Known Allergies Allergy (Verified 09/10/17 12:23) Medications antiarthritic combination no.2 900 mg tablet mg PO 06/09/17 [History Confirmed 09/10/17] multivitamin,wj-fcqj-ucavauph tablet 1 tab PO QDAY 06/09/17 [History Confirmed 09/10/17] pantoprazole 40 mg tablet,delayed release 40 mg PO QAM 06/09/17 [History Confirmed 09/10/17] acetaminophen 300 mg-codeine 30 mg tablet 1 tab PO Q6H PRN #10 tab 09/05/17 [Rx Confirmed 09/10/17] ciprofloxacin 500 mg tablet 500 mg PO BID #14 tab 09/10/17 [Rx Confirmed 09/10/17] PFSH Medical History Sterilization (Acute) GERD (gastroesophageal reflux disease) (Acute) Surgical History Encounter for incision and drainage procedure (Acute) S/P vasectomy (Acute) Social History Smoking Status: Former smoker alcohol intake: never substance use type: does not use HPI HPI HPI: HARINDER HERNANDEZ, is a 37 M who presents to the office today for 1 week status post bilateral partial vasectomy as a means of sterilization. Final pathology demonstrated segments of vas deferens. His only complaint today slight tenderness on the right side Exam Other: Right scrotum is slightly erythematous. The incision otherwise is well-healed. The left suture is just about to fall out. The left scrotum is otherwise unremarkable. Assessment AND Plan Problems 1. Encounter for sterilization Z30.2 Plan Possibly some mild early otitis on the right. I will prescribe ciprofloxacin 5 mg twice daily for 7 days. The patient has been given specimen containers. He is well aware that he is in need of 2 negative consecutive analysis. He has had an opportunity to ask questions answered. He is aware that it is his responsibility to submit the specimen started no sooner than 5 weeks. He has not yet cleared from utilizing other means of control. Jeb Colbert M.D., F.A.C.S. Orders Orders: Medications New: ciprofloxacin (Cipro) administer within 120 minutes prior to surgical in500 mg PO BID cision Coding Level of Care Code Global Post Op Diagnoses Encounter for sterilization Z30.2 09/10/17 1234 <Electronically signed by Jeb Colbert MD> Date Jeb Colbert MD Cosigner Signature: Date (if applicable) CC: SURGERY VISIT REPORT Observed: 09/05/2017 Status: F Source: [place] 1:51 PM [facility] [place] [facility] [address] [place] [address] OFFICE VISIT Date of Service: 09/05/17 MR#: [id number] Acct: [id number] Name: HARINDER HERNANDEZ Rep #: [id number] : 1980 Provider: Jeb Colbert MD Age/Sex: 37/M Location: [facility] Status: Signed Intake Intake Visit Reasons: VASECTOMY Chief Complaint: vasectomy Drapery Hanger Required: No Is patient in pain?: No Allergies No Known Allergies Allergy (Verified 09/05/17 13:05) Medications antiarthritic combination no.2 900 mg tablet mg PO 06/09/17 [History Confirmed 09/05/17] multivitamin,ww-yruz-nwlebnvh tablet 1 tab PO QDAY 06/09/17 [History Confirmed 09/05/17] pantoprazole 40 mg tablet,delayed release 40 mg PO QAM 06/09/17 [History Confirmed 09/05/17] acetaminophen 300 mg-codeine 30 mg tablet 1 tab PO Q6H PRN #10 tab 09/05/17 [Rx Confirmed 09/05/17] PFSH Medical History Sterilization (Acute) GERD (gastroesophageal reflux disease) (Acute) Surgical History Encounter for incision and drainage procedure (Acute) S/P vasectomy (Acute) Social History Smoking Status: Former smoker alcohol intake: never substance use type: does not use HPI HPI HPI: HARINDER HERNANDEZ, is a 37 M who presents to the office today for surgical bilateral partial vasectomy Office Procedures Vasectomy Procedure performed by: Jeb Colbert Informed consent given: Yes Informed consent signed: Yes Time out checklist: patient, procedure, site marked/identified, positioning of patient, supplies available, allergies confirmed, team agrees on procedure Time out staff in room: Yes Time out verified: Yes Time out date: 09/05/17 Time out time: 13:02 Preoperative sedation: Yes Anesthetic used: other (Lidocaine1% with 0.5% Marcaine ) Specimens: vas segments sent to pathology Vasectomy Provider Documentation Provider Documentation: Bilateral partial vasectomy Time out and informed consent was obtained. The patient was taken to the procedure room and placed supine on the table. Bilateral scrotal areas were clipper and Betadine prepped. 1% lidocaine mixed 50-50 with 0.5% Marcaine was utilized as a local anesthetic. Less than a total of 10 cc was utilized. Bilateral scrotal incisions were created. Sharp and blunt dissection was used to identify the vas deferens. A segment was cleared, the ends were crushed, and segments were excised. The ends were secured with 3-0 chromic inverted and resecured. The skin edges were approximated with simple sutures of 3-0 chromic. Topical antibiotic ointment and gauze applied. He was given activity and wound care instructions. The specimens are submitted in formalin for analysis. He is scheduled to return to my office in 1 week's time. He has been provided analgesics as prescribed. He is well aware that he has not yet cleared from utilizing other means of control. He is aware that 2 negative consecutive semen counts will be required prior to releasing him from utilizing other means of control. He is aware that this is his responsibility to complete. He has had an opportunity to ask and have questions answered. Blood loss minimal. Specimens segments of vas deferens. Complications none. Dr. Blakely assisted me today and assisted with performing the left vas with patient permission. We where both present throughout the entirety of the procedure. eJb Colbert M.D., F.A.C.S. Assessment AND Plan Problems 1. Sterilization Z30.2 Plan The patient will tolerate bilateral partial vasectomy. There were no apparent complications. The specimens are submitted in formalin for analysis. He was given activity and wound care instructions. He has been provided a prescription of Tylenol with codeine. He is scheduled return the office in 5 days time for postsurgical follow-up. He is well aware that he is not yet cleared from utilizing other means of control. Jeb Colbert M.D., F.A.C.S. Orders Orders: Medications New: Coding Level of Care Code No Charge Diagnoses Sterilization Z30.2 09/05/17 1351 <Electronically signed by Jeb Colbert MD> Date Jeb Colbert MD Cosigner Signature: Date (if applicable) CC: VAS DEFERENS Observed: 09/05/2017 Status: F Source: FRANKO (STERILIZATION) 1:00 PM [facility] [place] Patient: HARINDER HERNANDEZ : 1980 (37/M) Acct Num: [id number] Phys: Sayra MAYS,Jeb Unit Num: [id number] Loc: [facility] Specimen: [id number] Received: 09/05/17 - 1525 Spec Type: VAS TISSUES TISSUES: A. Vas deferens, NOS B. Vas deferens, NOS GROSS DESCRIPTION A - Received is one container designated right vas deferens. The specimen consists of a cylindrical segment of pink-milian soft tissue. The fragment measures 1.5 cm in length and 0.2 cm in maximum diameter. Serial sections do not reveal gross lesions. The specimen is totally submitted in one cassette. It will be serially sectioned at the time of embedding. B - Received is one container designated left vas deferens. The specimen consists of a cylindrical segment of pink-milian soft tissue. The fragment measures 2 cm in length and 0.2 cm in maximum diameter. Serial sections do not reveal gross lesions. The specimen is totally submitted in one cassette. It will be serially sectioned at the time of embedding. / JACINTO:symone 09/08/17 TC:4 CPT: 51429 x2 HEADER OPERATION: Partial vasectomy PRE-OP DIAGNOSIS: Sterilization TISSUE SUBMITTED: A. Right vas deferens, B. Left vas deferens MICROSCOPIC DESCRIPTION Slides are reviewed. MICROSCOPIC DIAGNOSIS A. Right vas deferens, partial vasectomy: Completely transected segment of vas deferens, no pathologic diagnosis. B. Left vas deferens, partial vasectomy: Completely transected segment of vas deferens, no pathologic diagnosis. SJ:symone 09/09/17 Signed bC Penalozain 09/09/17 <signature on file> Performed By: #### PVAS #### [facility] [place], [address] OBSOLETE Observed: 07/06/2017 Status: COMPLETED Source: CRIVITZ 12:00 AM [facility] REPOSIT[facility] HARINDER HERNANDEZ ([id number]) 1980 M Date Time Provider Department 07/06/17 [facility] During your visit today, we recorded the following information about you: Eddie Jonas Ma 07/07/2017 9:37 AM Signed Patient has been identified by name and date of : Yes Refused Prescriptions Disp Refills pantoprazole DR (PROTONIX) 40 mg tablet [Pharmacy Med Name: PANTOPRAZOLE SODIUM [address]] 90 tablet Sig: TAKE ONE TABLET BY MOUTH EVERY DAY FRAN: No Refused By: EDDIE JONAS MA Reason for Refusal: A Refill not appropriate RX INSTRUCTIONS: Patient aware RX will be sent to pharmacy. No need to notify patient. Eddie Jonas Ma Allergies As of Date: 07/06/2017 (No Known Allergies) Date Reviewed: 10/28/2016 Reviewed by: Tatianna Edwards LPN - Fully Assessed Reason for Visit: Refill Request [94] Prescriptions as of 07/06/2017 Sig: PANTOPRAZOLE 20 MG TABLET,DEL* Take 20 mg by mouth once mone* PANTOPRAZOLE 40 MG TABLET,DEL* Take 1 tablet by mouth once d* OMEPRAZOLE MAGNESIUM 20 MG TA* Take 1 tablet by mouth twice * THERAPEUTIC MULTIVITAMIN TABL* Take 1 tablet by mouth once d* [id number]-SBBYIHNSG-C-HYAL* Take by mouth. Problem List As Of Date 07/06/2017 Noted Resolved Well adult [HKS4034] INVALID FOR* GERD (gastroesophageal reflux disease) [K21.9] INVALID FOR* More... Encounter Status:Closed by EDDIE JONAS MA on 07/07/17 [facility] RT Observed: 06/10/2017 Status: F Source: CRIVITZ 2:12 PM [facility] REPOSITORY * * *Final Report* * * DATE OF EXAM: Jun 10 2017 2:12PM [id number] [facility] PROCEDURE REASON: call back right breast / abnormal mammogram * * * * Physician Interpretation * * * * RESULT: #[id number] - [facility] MALE UNILATERAL RIGHT DIGITAL DIAGNOSTIC MAMMOGRAM WITH CAD: 06/10/2017 HISTORY: Call Back Right Breast / Abnormal Mammogram /Patient reports NO breast symptoms /priors available for comparison. RESULT: TECHNIQUE: The study was acquired using full field digital technology and interpreted from soft copy. Current study was also evaluated with a Computer Aided Detection (CAD). Comparison is made to exam dated: 11/26/2016 mammogram - [facility]. There is a benign asymmetry in the right breast central to the nipple in the retroareolar region. This is less prominent. No other significant masses or calcifications are seen in the breast. IMPRESSION: BENIGN FINDING There is no mammographic evidence of malignancy. Dilia lester/lexus:06/10/2017 14:51:28 Community Program Assistant: Rosalina Azevedo RT(R)(M), [facility] Mammogram BI-RADS: 2 Benign finding Brain Surgeon: Lexus Transcribe Date/Time: Jun 10 2017 2:00P Dictated by: DILIA HANSON DO This examination was interpreted and the report reviewed and electronically signed by: DILIA HANSON DO on Jun 10 2017 2:51PM EST [id number] Observed: 06/10/2017 Status: COMPLETED Source: [place] 1:59 PM [facility] [place] REPOSITORY HNO ID: [id number] Author: Tiara Azevedo Rt Service: (none) Author Type: (none) Type: Progress Notes Filed: 06/10/2017 2:20 PM Note Text: Radiology Service Progress Note PATIENT NAME: Harinder Hernandez DATE OF SERVICE: June 10, 2017 TIME: 1:59 PM PATIENT IDENTITY VERIFICATION COMPLETED USING TWO (2) METHODS: Patient confirmed name verbally and Date of . PATIENT GENDER DATA: Female. status: : No status: NO. PATIENT RELEVANT IMPLANT DATA REVIEWED: Not Applicable RADIOLOGY DEPARTMENT: [facility] Right diag mammogram PERIPHERAL IV DATA: Not applicable SIGNED BY: Tiara Azevedo Rt June 10, 2017 1:59 PM COMP METABOLIC PANEL Collected: 05/13/2017 Status: F Source: [place] 4:01 PM [facility] REPOSITORY TYPE CODE TESTS RESULT OUT OF REFERENCE UNITS RANGE LAB TP 6.3-8.0 g/dL Protein, Total 7.3 LAB ALB 3.9-4.9 g/dL Albumin 4.5 LAB CA 8.5-10.2 mg/dL Calcium, Total 9.3 LAB TBIL 0.2-1.3 mg/dL Bilirubin, Total 0.3 LAB ALKP 36-108 U/L Alkaline Phosphatase 39 LAB AST 14-40 U/L AST 32 LAB GLU 74-99 mg/dL Glucose 94 Result Comment: The [place] Diabetes Association (ADA) provides guidance for cutoff values for fasting glucose and random glucose. The ADA defines fasting as no caloric intake for at least 8 hours. Fas ting plasma glucose results between 100 to 125 mg/dL indicate increased risk for diabetes (prediabetes). Fasting plasma glucose results greater than or equal to 126 mg/dL meet the criteria for diagnosis of diabetes. In the absence of unequivocal hyperglycemia, results should be confirmed by repeat testing. In a patient with classic symptoms of hyperglycemia or hyperglycemic crisis, random plasma glucose results greater than or equal to 200 mg/dL meet the criteria for diagnosis of diabetes. Reference: Standards of Medical Care in Diabetes 2016, [place] Diabetes Association. Diabetes Care. 2016.39(Suppl 1). LAB BUN 9-24 mg/dL BUN 20 LAB CRET 0.73-1.22 mg/dL Creatinine 0.96 LAB NA 136-144 mmol/L Sodium 140 LAB K 3.7-5.1 mmol/L Potassium 4.1 LAB CL 97-105 mmol/L Chloride 101 LAB CO2 22-30 mmol/L CO2 23 LAB AGAP 9-18 mmol/L Anion Gap 16 LAB ALT 10-54 U/L ALT High 57 LAB GFRAA eGFR- Amer. >60 LAB GFRNAA . eGFR-All Other Races >60 Result Comment: eGFR (Estimated GFR) Units of measure: mL/min/1.73 meters squared eGFR is derived from the reexpressed MDRD Study equation using the following parameters: serum creatinine, age, gender and race. The creatinine assay has been calibrated to be traceable to IDMS. An eGFR <60 mL/min/1.73m2 for >3 months is consistent with chronic kidney disease. Refer to KDOQI guidelines for clinical interpretation. In patients with unstable renal function, e.g. those with acute kidney injury, the eGFR may not accurately reflect actual GFR. Performed By: #### CMP, CBC #### [facility] [address] [place], [place] [address] CBC Collected: 05/13/2017 Status: F Source: [place] 4:01 PM [facility] REPOSITORY TYPE CODE TESTS RESULT OUT OF REFERENCE UNITS RANGE LAB WBC 3.70-11.00 k/uL WBC 9.87 LAB RBC 4.20-6.00 m/uL RBC 5.08 LAB HGB 13.0-17.0 g/dL Hemoglobin 15.9 LAB HCT 39.0-51.0 % Hematocrit 46.2 LAB MCV 80.0-100.0 fL MCV 90.9 LAB MCH 26.0-34.0 pG MCH 31.3 LAB MCHC 30.5-36.0 g/dL MCHC 34.4 LAB RDWCV 11.5-15.0 % RDW-CV 13.0 LAB PLTCT 150-400 k/uL Platelet Count 276 LAB MPV 9.0-12.7 fL MPV 11.0 LAB ABSNUC <0.01 k/uL Absolute nRBC <0.01 Performed By: #### CMP, CBC #### [facility] [address] [place], [place] [address] ALLERGIES ALLERGIES DATE TYPE / CODE NAME / CODE REACTION SEVERITY SOURCE 10/07/2017 Drug No Known Unknown [facility] Allergy/416 Allergies/O74986 [facility] 675405(SNOM 0388(RXNORM) Repository ED CT) Drug NO KNOWN [facility] Class/95771 ALLERGIES Main [place] 1003(SNOMED Repository CT) ENCOUNTERS ENCOUNTERS ADMIT/DISCHARGE ACCOUNT ADMITTING ENCOUNTER LOCATION SOURCE NUMBER CLASS 05/28/2018/05/28/20 [id number] Ambulatory [address] Repository 05/21/2018 [id number] Ambulatory [facility] ing:LAB[facility] Repository 04/13/2018/04/14/20 [id number] Ambulatory [address] Repository 03/25/2018/03/25/20 [id number] Ambulatory [address] Repository 03/25/2018/03/26/20 [id number] Ambulatory [address] Repository 11/05/2017/11/08/19 [id number] Ambulatory [address] Repository 11/05/2017 [id number] Ambulatory [facility] ing:LAB Repository 10/07/2017/10/08/19 [id number] Ambulatory [facility]MS[facility]:B [place] [facility] Repository 09/23/2017/09/24/19 [id number] Ambulatory BMSBuilding:B [place] [facility] Repository 09/17/2017/09/18/19 [id number] Ambulatory BMSBuilding:B [place] [address] [facility] Repository 09/11/2017/09/12/19 [id number] Ambulatory BMSBuilding:B [place] [facility] Repository 09/10/2017/09/11/19 [id number] Ambulatory BMSBuilding:B [place] [address] [facility] Repository 09/05/2017 [id number] Ambulatory [facility] ing:LABSPEC Repository 09/05/2017/09/06/19 [id number] Ambulatory BMSBuilding:B [place] [facility] Repository 06/10/2017/06/10/20 [id number] Ambulatory [address] Repository 05/13/2017/05/13/20 [id number] Ambulatory [address] Repository PAYERS PAYERS ENCOUNTER GUARANTOR PAYER SUBSCRIBER SOURCE 05/21/2018 HARINDER M Primary HARINDER M [place] [id number] JERRI Insurance:CIGNAPolicy SHEAFFDOB: [facility] [place], [place] Number: [id number] Hospital [address]Hle: 573 [id number] Repository [phone] (HP) Date:4630-55-40[address], [place] [address]ZP: 05/21/2018 Secondary NOT GIVENUNK [place] Insurance:SELF PAY Count Includes [facility] Number: Effective Repository Date:2018-05-21 11/05/2017 HARINDER M Primary HARINDER M [place] [id number] JERRI Insurance:CIGNAPolicy SHEAFFDOB: [facility] [place] Number: [id number] Hospital [address]Rvb: 573 [id number] Repository [phone] (HP) Date:1176-90-82XD [address]CE[place]XZHPG, [place] [address]TI: 11/05/2017 Secondary NOT GIVENUNK [place] Insurance:SELF PAY Count Includes [facility] Number: Effective Repository Date:2017-11-05 10/07/2017 HARINDER [id number] Primary HARINDER SHEAFFDOB: [place], Insurance:CIGNAPolicy [id number] [facility] [address]Qti: Number: [facility] [id number] Repository (HP) Date:0824-91-38CM [address]YCDXPVGFEFV, [place] [address]WO: 10/07/2017 Secondary NOT GIVENUNK [place] Insurance:SELF PAY [facility] Number: Effective Repository Date:2017-10-01 09/23/2017 HARINDER [id number] Primary HARINDER SHEAFFDOB: [place] J[place]RI [place], Insurance:CIGNAPolicy [id number] [facility] [address]Xzw: Number: [facility] [id number] Repository (HP) Date:0385-61-27RF [address]CFSEHYPIJCN, [place] [address]HI: 09/23/2017 Secondary NOT GIVENUNK [place] Insurance:SELF PAY Count Includes [facility] Number: Effective Repository Date:2017-09-23 09/17/2017 HARINDER [id number] Primary HARINDER SHEAFFDOB: [place] JERRI [place], Insurance:CIGNAPolicy [id number] [facility] [address]Gkh: Number: Hospital [id number] Repository () Date:3745-41-01DX [address]JKIFKJODBQ[address], [place] [address]HT: 09/17/2017 Secondary NOT GIVENUNK [place] Insurance:SELF PAY [facility] Number: Effective Repository Date:2017-09-17 09/11/2017 HARINDERMALA COHEN Primary HARINDER SHEAFFDOB: [place] JERRI [place], Insurance:CIGNAPolicy [id number] [facility] [address]Iro: Number: [facility] [id number] Repository () Date:4382-67-10HW [address]RKWVXZOGKYM, [place] [address]TR: 09/11/2017 Secondary NOT GIVENUNK [place] Insurance:SELF PAY [facility] Number: Effective Repository Date:2017-09-11 09/10/2017 HARINDER COHEN Primary HARINDER SHEAFFDOB: [place] JERRI [place], Insurance:CIGNAPolicy [id number] [facility] [address]Alv: Number: [facility] [id number] Repository () Date:1319-34-31BL [address]WEKAAVJ[address]J, [place] [address]AY: 09/10/2017 Secondary NOT GIVENUNK [place] Insurance:SELF PAY [facility] Number: Effective Repository Date:2017-09-10 09/05/2017 HARINDER COHEN Primary HARINDER SHEAFFDOB: [place] JERRI [place], Insurance:CIGNAPolicy [id number] [facility] [address]Soq: Number: Hospital [id number] Repository () Date:5287-42-17ZZ [address]VLKCOIWOZSD, [place] [address]QZ: 09/05/2017 Secondary NOT GIVENUNK [place] Insurance:SELF PAY [facility] Number: Effective Repository Date:2017-09-05 09/05/2017 HARINDER [id number] Primary HARINDER SHEAFFDOB: Frankocaleb MORENO, [facility] [id number] [address]Bmm: Number: [facility] [id number] Repository () Date:3920-68-99OA [address]FODAXBDVZ[address], [place] [address]RX: 09/05/2017 Secondary NOT GIVENUNK [place] Insurance:SELF PAY [facility] Number: Effective Repository Date:2017-07-28
== END ==
PROVIDERS: Family Provider Student in an Organized Health Care Education/Training Program; PCP Student in an Organized Health Care Education/Training Program; Referring Provider Surgery; Visit Provider Surgery
DX: Z30.2 Encounter for sterilization (principal)
CPT/HCPCS: 89321

== ENCOUNTER 2025-06-08 13:16 | Emergency (ER) | payer OTHER, SELFPAY ==
[2025-06-08] VITALS (7 sets, daily range): BP systolic 112–138; BP diastolic 72–81; PULSE 84–91; RESP 13–22; TEMP 36.1–37.1; O2SAT 95–100; BMI 46.7
--- NOTE | 2025-06-08 13:22 | EKG12_ITS ---
Test Reason : chest pain Blood Pressure : */* mmHG Vent. Rate : 78 BPM Atrial Rate : 78 BPM P-R Int : 156 ms QRS Dur : 92 ms QT Int : 368 ms P-R-T Axes : 30 45 42 degrees QTcB Int : 419 ms Normal sinus rhythm Normal ECG Confirmed by Kenneth Raymundo ([id number]), health editor VARSHA HARRY ([id number]) on 06/10/2025 10:05:49 AM Referred By: Confirmed By: Kenneth Raymundo
--- NOTE | 2025-06-08 13:45 | RAD_ITS ---
PROCEDURE: CHEST 1 VIEW (PORTABLE) 06/08/2025 REASON FOR EXAM: CHEST PAIN TECHNIQUE: Frontal view of the chest. FINDINGS: The heart is normal in size. The lungs are clear. No acute osseous abnormalities. RAD/Chest 1 View (Portable) IMPRESSION: No Acute Findings. Reading Location: [facility]
[2025-06-08 13:46] LABS: Hematocrit 45.1 % (40-54); Hemoglobin 15.8 g/dL (13.0-16.5); Immature Granulocytes Count 0.070 X10^3/uL (0.0-0.0); Mean Corp Hgb Conc 35.0 g/dL (32-36); Mean Corpuscular Volume 91.5 fL (80-94); Mean Platelet Vol. 9.2 fl (6.2-12.0); NRBC Flagged by Analyzer 0 % (0-5); Platelet Count 352 K/mm3 (150-450); RBC Distribution Width CV 12.8 % (11.6-14.6); RBC Distribution Width SD 42.5 fl (35.1-43.9); Red Blood Count 4.93 M/mm3 (4.6-6.2); White Blood Count 12.3 K/mm3 (4.4-11.0)
[2025-06-08 14:41] LABS: Troponin T High Sensitivity 8 ng/L (<=22)
[2025-06-08 14:43] LABS: Anion Gap 14 (5-15); BUN 15 mg/dL (4-19); BUN/Creat Ratio 12.8 RATIO (10-20); Calcium,Total 9.0 mg/dL (7.6-11.0); Carbon Dioxide 18.0 mmol/L (21.0-32.0); Chloride 107 mmol/L (98-108); Estimated Creatinine Clearance 120.28 ml/min (50-250); Glucose 86 mg/dL (70-99); Potassium 3.5 mmol/L (3.3-5.1)
--- NOTE | 2025-06-08 15:40 | ED.VIS.CHEST ---
HPI History of Present Illness Chief Complaint: Chest Pain Narrative Narrative: Patient was seen and examined after presenting to ED for multitude of symptoms some of them typical is very atypical for ACS states that he just did not quite feel well felt like he was dizzy and lightheaded just was not feeling right felt nauseated as well started having chest pressure he works as a business development agent denies having any fevers no history of DVT or PE not on anticoagulation no cardiac history no known family cardiac history either he is not diabetic does not smoke. [facility] (Updated 06/08/25 @ 17:[address] Priyanka Mace DO) Sterilization GERD (gastroesophageal reflux disease) Home Medications ?Medication ?Instructions ?Recorded ?Last Taken ?Type antiarthritic combination no.2 900 mg PO 06/09/17 Unknown History mg tablet (glucosamine-chondroitin) multivitamin,[id number]-[id number] 1 tab PO QDAY 06/09/17 Unknown History (Complete Multivitamin tablet) pantoprazole 40 mg tablet,delayed 40 mg PO QAM 06/09/17 Unknown History release (Protonix) ciprofloxacin HCl 500 mg tablet 500 mg PO BID #14 tabs 09/17/17 Unknown Rx (Cipro) Allergy/AdvReac Type Severity Reaction Status Date / Time No Known Allergies Allergy Verified 06/08/25 13:18 Surgical History S/P vasectomy Encounter for incision and drainage procedure Social History Smoking Status: Former smoker alcohol intake: never substance use type: does not use ROS ROS ED ROS Narrative Pertinent Positives: chest pressure lightheadedness dizziness nausea Pertinent Negatives: Fevers chills vomiting diarrhea or bloody stools myalgias urinary symptoms abdominal pain anticoagulation The remainder of review of systems negative unless otherwise stated in the HPI above. Systems reviewed including constitutional, psychiatric, cardiovascular, respiratory, integument, HENT, gastrointestinal. EXAM Physical Exam Narrative Exam Narrative: Patient is afebrile hemodynamically stable does not appear toxic or in distress while he was in the room he was tachycardic from 100-105 he was oxygenating well though on room air he had normal heart lung sounds no pericardial friction rub abdomen is soft nontender nondistended no palpable pulsatile mass he has intact and equal MSPs in all of his extremities no lower extremity edema or calf tenderness. Const Vital Signs: 06/08/25 13:17 06/08/25 14:29 06/08/25 14:31 Temperature 97 F L Temperature Source Temporal Pulse Rate 86 91 Respiratory Rate 16 20 H Blood Pressure 121/73 H 115/77 Blood Pressure Mean 89 89 Pulse Ox 95 96 100 Oxygen Delivery Method Room Air Room Air Room Air 06/08/25 15:03 06/08/25 16:02 06/08/25 17:05 Temperature Temperature Source Pulse Rate 85 87 84 Respiratory Rate 13 15 22 H Blood Pressure 112/77 118/72 131/81 H Blood Pressure Mean 88 87 97 Pulse Ox 100 99 100 Oxygen Delivery Method Room Air Room Air Room Air Heart Score History: Slightly/Non-Suspicious ECG: Normal Age: </= 45 years Risk Factors: 1 or 2 Risk Factors Troponin: </= Normal Limit Score: 1 MDM MDM MDM Narrative Medical decision making narrative: Nursing notes, triage notes, available previous documentation, and vital signs were reviewed. Any discrepancies noted were addressed. Differential Diagnoses: Could be ACS but this would mostly be atypical symptoms but does not seem to have any exertional symptoms or suspicion for PE however he is PERC positive with his tachycardia. Could be pleuritic pain as well also consider possibility of pneumonia or viral process low suspicion for aortic etiology Labs Reviewed: Slight leukocytosis 12.3 hemoglobin is 15.8 no significant electrolyte abnormality or renal insufficiency initial troponin is 8. D-dimer was unremarkable at 0.43 delta troponin was 7 we will get this patient up and ambulate him as long as he does well he can follow-up with his PCP Imaging Reviewed: Personally reviewed and interpreted by me: No pneumonia edema wide mediastinum or pneumothoraces on chest x-ray EKG: Normal sinus rhythm rate of 78. I do not see evidence of ACS. No evidence of prolonged QT syndrome. No evidence of AV Block. No short GA intervals, wide QRS, or Delta waves indicative of WPW. No evidence of dagger-like q waves or LVH indicative of Hypertrophic Cardiomyopathy. No evidence of Brugada Syndrome. EKG interpretation is noted and agreed to in the EMR. The interpretation of this patient's EKG contributed directly to the care and management of this patient. Risk Stratification Tools: PERC Rule: Age: <50, 0 Heart Rate:>100, +1 Room Air Pulse Ox <95%: No, 0 Unilateral Leg Swelling: No, 0 Hemoptysis: No, 0 Recent Surgery or Trauma: No, 0 Prior PE or DVT: No, 0 Hormone Use: No, 0 PERC positive. D-Dimer ordered. Wells Score: Clinical signs & symptoms of DVT: No PE is #1 diagnosis or equally likely: No HR >100 at any time: Yes +1.5 Immobilization at least 3 days or surgery in the previous 4 weeks: No Previous, objectively diagnosed PE or DVT: No Hemoptysis: No Malignancy in last 6 months: No Risk: Low <2 points: 1.3% incidence of PE. PERC positive. D-Dimer ordered. Previous Documentation Reviewed: None available or applicable at this time. ED Course: Patient presenting with symptoms as stated above patient has a chest pressure but no real other atypical symptoms associated with his symptoms we will go ahead and add a D-dimer because he was tachycardic ensure he does not have evidence or likelihood of PE. His chest x-ray is without evidence of an infectious process or other pathology to be concerning with chest pain such as pneumothorax or widened mediastinum so I have lower suspicion for aortic etiology. 1715: Patient's labs are unremarkable patient will get up and ambulate as long as he does well he can follow-up with his PCP in the outpatient setting. Return precautions follow-up recommendations provided 1733: Patient ambulated and did well This note was made utilizing voice recognition software. All attempts were made to correct spelling or other errors prior to note completion. However, due to the fast-paced nature of emergency medicine, some errors may still be present. Lab Data Labs: Laboratory Results - last 24 hr 06/08/25 06/08/25 06/08/25 13:36 15:13 15:46 WBC 12.3 H RBC 4.93 Hgb 15.8 Hct 45.1 MCV 91.5 MCH 32.0 MCHC 35.0 RDW Std Deviation 42.5 RDW Coeff of Abisai 12.8 Plt Count 352 MPV 9.2 Immature Gran % (Auto) 0.600 Neut % (Auto) 47.2 Lymph % (Auto) 40.2 [place] % (Auto) 9.8 Eos % (Auto) 1.5 Baso % (Auto) 0.7 Absolute Neuts (auto) 5.8 Absolute Lymphs (auto) 4.95 H Nucleated RBC % 0 D-Dimer Quant (PE/DVT) 0.43 Sodium 139 Potassium 3.5 Chloride 107 Carbon Dioxide 18.0 L Anion Gap 14 BUN 15 Creatinine 1.14 Estim Creat Clear Calc 120.28 Est GFR (MDRD) Non-Af 81 BUN/Creatinine Ratio 12.8 Glucose 86 Calcium 9.0 Troponin T High Sens 8 Troponin T Hi Sens 2 Hr 7 Radiography Diagnostic Testing: Clinical Impression(s) from Imaging Studies Chest X-Ray 06/08/25 13:45 IMPRESSION: No Acute Findings. Reading Location: [facility] Discharge Plan Triage Chief Complaint: Chest Pain ED Provider: Priyanka Mace Dx/Rx/DC Orders Clinical Impression: Chest pressure, Lightheadedness, Nausea Instructions: ED Chest Pain, Uncertain Cause Prescriptions: No Action pantoprazole [Protonix] 40 mg tablet,delayed release (DR/EC) 40 mg PO QAM multivitamin,[id number]-[id number] [Complete Multivitamin] tablet 1 tab PO QDAY antiarthritic combination no.2 [glucosamine-chondroitin] 900 mg tablet PO ciprofloxacin HCl [Cipro] 500 mg tablet 500 mg PO BID Qty: 14 0RF Primary Care Provider: Norberto Rodgers Referrals: Norberto Rodgers DO [Primary Care Provider, Medical] Activity Restrictions/Additional Instructions: I recommend following up with your primary care doctor should you have worsening symptoms do not hesitate to return. You may need a stress test outpatient. Print Language: Spanish Disposition Disposition: Home, Self Care
[2025-06-08 15:42] LABS: D-Dimer Quantitative (DVT/PE) 0.43 FEU/ug/m (0.27-0.49)
[2025-06-08 16:32] LABS: Troponin T High Sens 2 HR 7 ng/L (<=22)
== END 2025-06-08 17:42 | disposition home or self-care (01) ==
PROVIDERS: Emergency Provider Specialist/Technologist Athletic Trainer; PCP Student in an Organized Health Care Education/Training Program; Visit Provider Specialist/Technologist Athletic Trainer
DX: R07.89 Other chest pain (principal); Z87.891 Personal history of nicotine dependence; R11.0 Nausea; R42 Dizziness and giddiness; K21.9 Gastro-esophageal reflux disease without esophagitis
CPT/HCPCS: 71045; 80048; 84484; 85025; 85379; 93005; 99284; A4216